=== PATIENT | male | born 1980 | race Caucasian/White ===

== ENCOUNTER 2019-10-23 16:50 | Emergency (ER) | payer OTHER ==
[2019-10-23] MEDS ORDERED: BABY ASPIRIN 81 MG CHEW PO ONE (17:00)
[2019-10-23] MEDS ORDERED: Sodium Chloride 0.9% 1000 ML 1,000 ML IV SCH (17:00)
[2019-10-23] MEDS ORDERED: Nitrostat 0.4 MG (ED) SL ONE ×2 (17:00→17:05)
[2019-10-23] MEDS ORDERED: DUONEB 0.5-3 MG/3 ml Neb IH ONE ×2 (17:02→17:12)
[2019-10-23] MEDS ORDERED: BABY ASPIRIN 81 MG CHEW ONE (17:05)
[2019-10-23] MEDS ORDERED: Sodium Chloride 0.9% 1000 ML 1,000 ML ONE (17:06)
--- NOTE | 2019-10-23 17:07 | ERPHSYRPT ---
- History of Present Illness Time Seen by Provider: 10/23/19 17:03 Historian: patient, family Exam Limitations: no limitations Patient Subjective Stated Complaint: Pt states "For the past couple of hours my chest has been hurting and I am coughing so hard that my balls hurt. I am coughing up green stuff and my chest is hurting more and more." Triage Nursing Assessment: Pt presented alert and oriented X 3, skin pwd PT ambulates with an upright steady gait, able to speak in clear full sentencse. Pt coughing intermittantly, nasal congestion noted. Physician History: Patient states "For the past couple of hours my chest has been hurting and I am coughing so hard that my balls hurt. I am coughing up green stuff and my chest is hurting more and more." his son is also sick with same symptoms. No fever, no chills, Timing/Duration: today Quality: tightness Location: central Chest Pain Radiation: no radiation Modifying Factors: Improves With: nothing Associated Symptoms: shortness of breath, cough Prior Chest Pain/Cardiac Workup: no prior chest pain Aspirin Treatment Today: 81 mg x 1 Allergies/Adverse Reactions: No Known Drug Allergies Allergy (Unverified 10/23/19 16:58) Hx Tetanus, Diphtheria Vaccination/Date Given: No Hx Influenza Vaccination/Date Given: No Hx Pneumococcal Vaccination/Date Given: No Immunizations Up to Date: Yes - Review of Systems Constitutional: No Fever, No Chills Eyes: No Symptoms Ears, Nose, & Throat: No Symptoms Respiratory: Cough, Wheezing, No Dyspnea Cardiac: Chest Pain, No Edema, No Syncope Abdominal/Gastrointestinal: No Abdominal Pain, No Nausea, No Vomiting, No Diarrhea Genitourinary Symptoms: No Dysuria Musculoskeletal: No Back Pain, No Neck Pain Skin: No Rash Neurological: No Dizziness, No Focal Weakness, No Sensory Changes Psychological: No Symptoms Endocrine: No Symptoms All Other Systems: Reviewed and Negative - Past Medical History Pertinent Past Medical History: No - Past Surgical History Past Surgical History: Yes Other Surgical History: appi - Social History Smoking Status: Current every day smoker How long have you smoked: years Exposure to second hand smoke: Yes Drug Use: marijuana Patient Lives Alone: No - Nursing Vital Signs Nursing Vital Signs: Initial Vital Signs Temperature 98.6 F 10/23/19 16:51 Pulse Rate 96 H 10/23/19 16:51 Respiratory Rate 24 10/23/19 16:51 Blood Pressure 180/106 10/23/19 16:51 O2 Sat by Pulse Oximetry 97 10/23/19 16:51 Pain Scale Pain Intensity 4 - Physical Exam General Appearance: no apparent distress, alert Eye Exam: PERRL/EOMI, eyes nml inspection Ears, Nose, Throat Exam: normal ENT inspection, moist mucous membranes Neck Exam: normal inspection, non-tender, supple, full range of motion Respiratory Exam: rhonchi, wheezing, No respiratory distress Cardiovascular Exam: regular rate/rhythm, normal heart sounds Gastrointestinal/Abdomen Exam: soft, No tenderness, No mass Back Exam: normal inspection, No CVA tenderness, No vertebral tenderness Extremity Exam: normal inspection, normal range of motion Neurologic Exam: alert, oriented x 3, cooperative, normal mood/affect, sensation nml, No motor deficits Skin Exam: normal color, warm, dry SpO2: 97 - Course Nursing assessment & vital signs reviewed: Yes EKG Interpreted by Me: Sinus Rhythm, NORMAL ST-T - Radiology Exams Chest X-ray Interpretation: Reviewed by me, Negative Ordered Tests: Active Orders 24 hr Category Date Time Status Can Stacker STAT Care 10/23/19 17:01 Active EKG-ER Only STAT Care 10/23/19 17:00 Active CHEST 2 VIEWS (PA AND LAT) Stat Exams 10/23/19 17:00 Taken CBC W DIFF Stat Lab 10/23/19 17:14 Completed CMP Stat Lab 10/23/19 17:14 Completed TROPONIN Q3H Lab 10/23/19 17:14 Completed TROPONIN Q3H Lab 10/23/19 20:00 Ordered TROPONIN Q3H Lab 10/23/19 23:00 Ordered Peak Expiratory Flow Rate ONCE RT 10/23/19 17:29 Completed Respiratory Therapy Assessment DAILY RT 10/23/19 17:28 Completed Medication Summary Discontinued Medications Generic Name Dose Route Start Last Admin Trade Name Freq PRN Reason Stop Dose Admin Albuterol/Ipratropium 3 ml 10/23/19 17:02 10/23/19 17:28 Duoneb 0.5-3 Mg/3 Ml Neb IH 10/23/19 17:03 3 ml STAT ONE Administration Albuterol/Ipratropium Confirm 10/23/19 17:12 Duoneb 0.5-3 Mg/3 Ml Neb Administered 10/23/19 17:13 Dose 3 ml IH .STK-MED ONE Aspirin 81 mg 10/23/19 17:00 10/23/19 17:06 Baby Aspirin 81 Mg Chew PO 10/23/19 17:01 81 mg STAT ONE Administration Aspirin Confirm 10/23/19 17:05 Baby Aspirin 81 Mg Chew Administered 10/23/19 17:06 Dose 324 mg .ROUTE .STK-MED ONE Ceftriaxone Sodium 1,000 mg 10/23/19 17:46 10/23/19 17:59 Rocephin 1000 Mg Inj IM 10/23/19 17:47 1,000 mg STAT ONE Administration Ceftriaxone Sodium Confirm 10/23/19 17:49 Rocephin 1000 Mg Inj Administered 10/23/19 17:50 Dose 1,000 mg .ROUTE .STK-MED ONE Sodium Chloride 1,000 mls @ 50 mls/hr 10/23/19 17:00 10/23/19 17:07 Sodium Chloride 0.9% 1000 Ml IV 11/22/19 16:59 50 mls/hr .Q20H SHARON Administration Sodium Chloride Confirm 10/23/19 17:06 Sodium Chloride 0.9% 1000 Ml Administered 10/23/19 17:07 Dose 1,000 mls @ ud .ROUTE .STK-MED ONE Lidocaine HCl Confirm 10/23/19 17:50 Xylocaine 1% Hcl 20 Ml Mdv Administered 10/23/19 17:51 Dose 3 ml .ROUTE .STK-MED ONE Nitroglycerin 0.4 mg 10/23/19 17:00 10/23/19 17:06 Nitrostat 0.4 Mg (Ed) SL 10/23/19 17:01 0.4 mg STAT ONE Administration Nitroglycerin Confirm 10/23/19 17:05 Nitrostat 0.4 Mg (Ed) Administered 10/23/19 17:06 Dose 0.4 mg SL .STK-MED ONE Potassium Bicarbonate 25 meq 10/23/19 17:38 10/23/19 17:59 K-Lyte 25 Meq PO 10/23/19 17:39 25 meq STAT ONE Administration Potassium Bicarbonate Confirm 10/23/19 17:49 K-Lyte 25 Meq Administered 10/23/19 17:50 Dose 25 meq .ROUTE .STK-[facility] ONE Lab/Rad Data: Laboratory Result Diagrams 10/23/19 17:14 10/23/19 17:14 Laboratory Results 10/23/19 10/23/19 10/23/19 Range/Units 17:14 17:14 17:14 WBC 9.0 (4.0-10.5) K/mm3 RBC 4.60 (4.1-5.6) M/mm3 Hgb 14.4 (12.5-18.0) gm/dl Hct 42.4 (42-50) % MCV 92.2 (78-100) fl MCH 31.3 (26-32) pg MCHC 34.0 (32-36) g/dl RDW 14.2 H (11.5-14.0) % Plt Count 284 (150-450) K/mm3 MPV 9.9 (7.5-11.0) fl Gran % 60.1 (36.0-66.0) % Eos # (Auto) 0.08 (0-0.5) Absolute Lymphs (auto) 2.05 (1.0-4.6) Absolute Monos (auto) 1.42 H (0.0-1.3) Lymphocytes % 22.8 L (24.0-44.0) % Monocytes % 15.8 H (0.0-12.0) % Eosinophils % 0.9 (0.00-5.0) % Basophils % 0.4 (0.0-0.4) % Absolute Granulocytes 5.42 (1.4-6.9) Basophils # 0.04 (0-0.4) Sodium 139 (137-145) mmol/L Potassium 3.3 L (3.5-5.1) mmol/L Chloride 102 (98-107) mmol/L Carbon Dioxide 25 (22-30) mmol/L Anion Gap 14.7 (5-15) MEQ/L BUN 12 (9-20) mg/dL Creatinine 1.05 (0.66-1.25) mg/dL Estimated GFR > 60.0 ML/MIN Glucose 106 (74-106) mg/dL Calcium 9.1 (8.4-10.2) mg/dL Total Bilirubin 0.40 (0.2-1.3) mg/dL AST 28 (17-59) U/L ALT 39 (0-50) U/L Alkaline Phosphatase 89 (38-126) U/L Troponin I (0.000-0.034) ng/mL Serum Total Protein 7.9 (6.3-8.2) g/dL Albumin 4.3 (3.5-5.0) g/dL Influenza Type A Ag NEGATIVE (NEGATIVE) Influenza Type B Ag POSITIVE (NEGATIVE) RSV (PCR) NEGATIVE (Negative) 10/23/19 Range/Units 17:14 WBC (4.0-10.5) K/mm3 RBC (4.1-5.6) M/mm3 Hgb (12.5-18.0) gm/dl Hct (42-50) % MCV (78-100) fl MCH (26-32) pg MCHC (32-36) g/dl RDW (11.5-14.0) % Plt Count (150-450) K/mm3 MPV (7.5-11.0) fl Gran % (36.0-66.0) % Eos # (Auto) (0-0.5) Absolute Lymphs (auto) (1.0-4.6) Absolute Monos (auto) (0.0-1.3) Lymphocytes % (24.0-44.0) % Monocytes % (0.0-12.0) % Eosinophils % (0.00-5.0) % Basophils % (0.0-0.4) % Absolute Granulocytes (1.4-6.9) Basophils # (0-0.4) Sodium (137-145) mmol/L Potassium (3.5-5.1) mmol/L Chloride (98-107) mmol/L Carbon Dioxide (22-30) mmol/L Anion Gap (5-15) MEQ/L BUN (9-20) mg/dL Creatinine (0.66-1.25) mg/dL Estimated GFR ML/MIN Glucose (74-106) mg/dL Calcium (8.4-10.2) mg/dL Total Bilirubin (0.2-1.3) mg/dL AST (17-59) U/L ALT (0-50) U/L Alkaline Phosphatase (38-126) U/L Troponin I < 0.012 (0.000-0.034) ng/mL Serum Total Protein (6.3-8.2) g/dL Albumin (3.5-5.0) g/dL Influenza Type A Ag (NEGATIVE) Influenza Type B Ag (NEGATIVE) RSV (PCR) (Negative) - Progress Progress: improved Air Movement: good Blood Culture(s) Obtained: No Antibiotics given: Yes Counseled pt/family regarding: lab results, diagnosis, need for follow-up, rad results - Departure Departure Disposition: Home Clinical Impression: Influenza B Right lower lobe pneumonitis Qualifiers: Pneumonia type: due to unspecified organism Qualified Code(s): J18.9 - Pneumonia, unspecified organism Condition: Stable Critical Care Time: No Referrals: ARNULFO BAUTISTA MD [ACTIVE STAFF] - Instructions: Atypical Chest Pain, Pneumonia, Adult (DC) Additional Instructions: Discharge/Care Plan KAYLYN DURAN was seen on 10/23/19 in the Emergency Room. The patient was counseled regarding Diagnosis,Lab results, Imaging studies, need for follow up and when to return to the Emergency Room. Prescriptions given: Discharge Note I have spoken with the patient and/or caregivers. I have explained the patient' s condition, diagnosis and treatment plan based on the information available to me at this time. I have answered the patient's and/or caregiver's questions and addressed any concerns. The patient and/or caregivers have as good understanding of the patient's diagnosis, condition and treatment plan as can be expected at this point. The vital signs have been stable. The patient's condition is stable and appropriate for discharge from the emergency department. The patient will pursue further outpatient evaluation with the primary care physician or other designated or consulting physician as outlined in the discharge instructions. The patient and/or caregivers are agreeable to this plan of care and follow-up instructions have been explained in detail. The patient and/or caregivers have received these instruction. The patient/and or caregivers are aware that any significant change in condition or worsening of symptoms should prompt an immediate return to this or the closest emergency department or call 911. KAYLYN DURAN was seen on 10/23/19 n the Emergency Room. At that time you were treated for an emergent condition, during your visit Laboratory, Radiology and/ or other procedures may have been ordered. It is very important that you follow- up with your Primary Care Physician NO FAMILY DOCTOR within the next 24-48 hours to review your Emergency Room visit and the final results of testing that was ordered. Some test results such as Urine Cultures, Blood Cultures, and other cultures if ordered will not be finalized for 24-48 hours. If you do not have a Primary Care Provider please call the medical records department at [phone] ext [phone] to obtain a copy of your results or you may sign into our patient portal to obtain these results by visiting us @ [email or web address] and completing the following steps: 1. Click on the Patient Portal link 2. Click the Patient Self Enrollment Link to complete the enrollment form and entering your 3. Once the enrollment form is completed you will receive an email with a temporary ID and password at the email address you provided. 4. Next choose a user name and password. Your user name must be at least 4 characters long and your password must be at least 4 characters long. 5. Choose a security question from the list and provide your answer to the question. If you already have signed into the Health Portal you may access your Health Care Information 14/04 by the following steps: 1. Login to our website @ [email or web address] 2. Enter your original user name and password. FAQS The [facility] Health Portal is an online tool that contains your Lab Results, Radiology Reports, Visit History, Discharge Instructions and Health Summary Lab and Radiology Results will not be available for 72 hours on the portal. The Portal is a secure site, passwords are encryted and URLs are re-written so they cannot be copied and pasted. You and authorized family members are the only ones who can access your Portal. Also there is a timeout feature that protects your information if you leave the Portal page open. If you have technical difficulty please use the Contact Us link on the page this will allow you to submit any questions you have regarding the Portal or you may contact the Medical Record Department at [phone]. Prescriptions: Amoxicillin 500 mg Cap [Amoxil 500 mg] 500 mg PO TID #30 capsule Oseltamivir 75 mg [Tamiflu 75MG Capsule] 75 mg PO BID #10 cap Benzonatate [Tessalon Perle] 100 mg PO QID #30 capsule
[2019-10-23 17:15] LABS: Absolute Neutrophil Ct (ANC) 5.42 (1.4-6.9); BASOPHIL % 0.4 % (0.0-0.4); Basophil (Absolute #) 0.04 (0-0.4); Eosinophil % 0.9 % (0.00-5.0); Eosinophil (Absolute #) 0.08 (0-0.5); Hematocrit 42.4 % (42-50); Hemoglobin 14.4 gm/dl (12.5-18.0); Lymphocyte (Absolute #) 2.05 (1.0-4.6); Lymphocytes % 22.8 % (24.0-44.0); Mean Cell Volume 92.2 fl (78-100); Mean Corpuscular Hemoglobin 31.3 pg (26-32); Mean Platelet Volume 9.9 fl (7.5-11.0); Monocyte (Absolute #) 1.42 (0.0-1.3); Monocytes % 15.8 % (0.0-12.0); Neutrophil % 60.1 % (36.0-66.0); Platelet Count 284 K/mm3 (150-450); Red Cell Distribution Width 14.2 % (11.5-14.0)
[2019-10-23 17:24] LABS: ALBUMIN 4.3 g/dL (3.5-5.0); ALKALINE PHOSPHATASE 89 U/L (38-126); ANION GAP 14.7 MEQ/L (5-15); BLOOD UREA NITROGEN 12 mg/dL (9-20); CHLORIDE 102 mmol/L (98-107); Calcium 9.1 mg/dL (8.4-10.2); Carbon Dioxide 25 mmol/L (22-30); Creatinine 1 1.05 mg/dL (0.66-1.25); Glucose 106 mg/dL (74-106); Potassium 3.3 mmol/L (3.5-5.1); SGOT/AST 28 U/L (17-59); SGPT/ALT 39 U/L (0-50); SODIUM 139 mmol/L (137-145); Total Protein 7.9 g/dL (6.3-8.2)
[2019-10-23] MEDS ORDERED: K-LYTE 25 MEQ PO ONE (17:38)
[2019-10-23] MEDS ORDERED: Rocephin 1000 MG INJ IM ONE (17:46)
[2019-10-23] MEDS ORDERED: K-LYTE 25 MEQ ONE (17:49)
[2019-10-23] MEDS ORDERED: Rocephin 1000 MG INJ ONE (17:49)
[2019-10-23 17:50] VITALS: BP 129/80
[2019-10-23] MEDS ORDERED: XYLOCAINE 1% HCL 20 ML MDV ONE (17:50)
[2019-10-23 17:51] VITALS: PULSE 98
[2019-10-23 17:53] VITALS: O2SAT 97
[2019-10-23 18:20] LABS: INFLUENZA A NEGATIVE (NEGATIVE)
[2019-10-23 18:21] LABS: INFLUENZA B POSITIVE (NEGATIVE); RESPIRATORY SYNCTIAL VIRUS NEGATIVE (Negative)
--- NOTE | 2019-10-23 20:10 | XRAY ---
Indication: Chest pain, cough, short of breath, and wheezing. Comparison: None PA/lateral chest demonstrates subtle right base infiltrate versus atelectasis. Remaining heart and left lung normal. Bony thorax intact.
== END 2019-10-23 18:07 | disposition home or self-care (01) ==
LOC: ED 16:50
DX: J11.1 Influenza due to unidentified influenza virus with other respiratory manifestations (principal); J18.1 Lobar pneumonia, unspecified organism
CPT/HCPCS: 36415; 71046; 80053; 84484; 85025; 87631; 93005; 93041; 94150; 94640; 96372; 99284; J0696; A9270-GY

== ENCOUNTER 2020-05-28 10:07 | Emergency (ER) | payer OTHER ==
[2020-05-28] MEDS ORDERED: Sodium Chloride 0.9% 1000 ML 1,000 ML IV STA ×2 (10:51→10:52)
--- NOTE | 2020-05-28 10:51 | ERPHSYRPT ---
- History of Present Illness Time Seen by Provider: 05/28/20 10:47 Source: patient Exam Limitations: no limitations Patient Subjective Stated Complaint: headache, body aches, chills, lost taste/smell, exposure to 2 possible covid people Triage Nursing Assessment: pt to ED c/o headache, cough, body aches, fevers, loss taste/smell and possible covid exposure last week. pt states he started feeling bad Friday and has been staying home since Friday. 2 coworks have also been tested but do not have results back yet. no SOB and afebrile on arrival. rates 07/01 NAV[facility]TE Physician History: pt has Covid exp at work and now with body aches , but also sinus hx and drainage; ginger fluids today but had emesis last pm and loose stool - has lost taste; not sort of breath and has normal pulse ox and chest clear- no menigismus or shaista h; abd soft nontender without mass or peritoneal signs; Timing/Duration: yesterday Cough Quality/Degree: dry cough Possible Cause: no prior episodes Modifying Factors: Improves With: nothing Associated Symptoms: nasal congestion, nasal drainage, sinus infection Allergies/Adverse Reactions: No Known Drug Allergies Allergy (Verified 05/28/20 12:12) Hx Tetanus, Diphtheria Vaccination/Date Given: No Hx Influenza Vaccination/Date Given: No Hx Pneumococcal Vaccination/Date Given: No Immunizations Up to Date: No Travel Risk - International Travel Have you traveled outside of the country in past 3 weeks: No - Coronavirus Screening Are you exhibiting any of the following symptoms?: Yes Symptoms: Fever, Loss of Taste or Smell, Headaches/Body Aches/Fatigue - Review of Systems Constitutional: Chills, Malaise, No Fever Eyes: No Symptoms Ears, Nose, & Throat: Nose Congestion, Sinus Drainage Respiratory: Cough, No Dyspnea Cardiac: No Chest Pain, No Edema, No Syncope Abdominal/Gastrointestinal: Nausea, Vomiting, Diarrhea, No Abdominal Pain Genitourinary Symptoms: No Dysuria Musculoskeletal: No Back Pain, No Neck Pain Skin: No Rash Neurological: No Dizziness, No Focal Weakness, No Sensory Changes Psychological: No Symptoms Endocrine: No Symptoms All Other Systems: Reviewed and Negative - Past Medical History Pertinent Past Medical History: No - Past Surgical History Past Surgical History: Yes Other Surgical History: appi - Social History Smoking Status: Current every day smoker How long have you smoked: years Exposure to second hand smoke: Yes Drug Use: none Patient Lives Alone: No - Nursing Vital Signs Nursing Vital Signs: Initial Vital Signs Temperature 97.7 F 05/28/20 10:22 Pulse Rate 68 05/28/20 10:22 Respiratory Rate 18 05/28/20 10:22 Blood Pressure 165/108 05/28/20 10:22 O2 Sat by Pulse Oximetry 98 05/28/20 10:22 Pain Scale Pain Intensity 0 - Physical Exam General Appearance: no apparent distress, alert Eye Exam: PERRL/EOMI, eyes nml inspection Ears, Nose, Throat Exam: TMs normal, pharynx normal, moist mucous membranes, other (tender bilat sinuses) Neck Exam: normal inspection, non-tender, supple, full range of motion Respiratory Exam: normal breath sounds, lungs clear, No respiratory distress Cardiovascular Exam: regular rate/rhythm, normal heart sounds Gastrointestinal/Abdomen Exam: soft, No tenderness Back Exam: normal inspection, No CVA tenderness, No vertebral tenderness Extremity Exam: normal inspection, normal range of motion Neurologic Exam: alert, oriented x 3, cooperative, normal mood/affect, sensation nml, No motor deficits Skin Exam: normal color, warm, dry, No rash Lymphatic Exam: No adenopathy SpO2: 98 - Course Nursing assessment & vital signs reviewed: Yes Ordered Tests: Active Orders 24 hr Category Date Time Status IV Insertion STAT Care 05/28/20 10:51 Active Medication Summary Discontinued Medications Generic Name Dose Route Start Last Admin Trade Name Freq PRN Reason Stop Dose Admin Diphenhydramine HCl 25 mg 05/28/20 11:35 05/28/20 11:45 Benadryl 50 Mg/Ml IV 05/28/20 11:36 25 mg STAT ONE Administration Diphenhydramine HCl Confirm 05/28/20 11:41 Benadryl 50 Mg/Ml Administered 05/28/20 11:42 Dose 50 mg .ROUTE .STK-MED ONE Sodium Chloride 1,000 mls @ 999 mls/hr 05/28/20 10:51 05/28/20 12:06 Sodium Chloride 0.9% 1000 Ml IV 05/28/20 11:51 Infused .Q1H1M STA Infusion Sodium Chloride 1,000 mls @ 999 mls/hr 05/28/20 10:52 05/28/20 12:46 Sodium Chloride 0.9% 1000 Ml IV 05/28/20 11:52 Infused .Q1H1M STA Infusion Ceftriaxone Sodium/Dextrose 1 g in 50 mls @ 100 mls/hr 05/28/20 10:53 05/28/20 11:35 Rocephin 1 Gm-D5w 50 Ml Bag IV 05/28/20 11:22 Infused STAT STA Infusion Sodium Chloride Confirm 05/28/20 10:56 Sodium Chloride 0.9% 1000 Ml Administered 05/28/20 10:57 Dose 1,000 mls @ ud .ROUTE .STK-MED ONE Ceftriaxone Sodium/Dextrose Confirm 05/28/20 10:56 Rocephin 1 Gm-D5w 50 Ml Bag Administered 05/28/20 10:57 Dose 1 g in 50 mls @ ud IV .STK-MED ONE Sodium Chloride Confirm 05/28/20 11:41 Sodium Chloride 0.9% 1000 Ml Administered 05/28/20 11:42 Dose 1,000 mls @ ud .ROUTE .STK-MED ONE Ketorolac Tromethamine 30 mg 05/28/20 11:34 05/28/20 11:45 Toradol 30 Mg Injection IV 05/28/20 11:35 30 mg STAT ONE Administration Ketorolac Tromethamine Confirm 05/28/20 11:41 Toradol 30 Mg Injection Administered 05/28/20 11:42 Dose 30 mg .ROUTE .STK-MED ONE Metoclopramide HCl 10 mg 05/28/20 11:34 05/28/20 11:45 Reglan 10 Mg/2 Ml IV 05/28/20 11:35 10 mg STAT ONE Administration Metoclopramide HCl Confirm 05/28/20 11:41 Reglan 10 Mg/2 Ml Administered 05/28/20 11:42 Dose 10 mg .ROUTE .STK-MED ONE - Progress Progress: improved, re-examined Air Movement: good Progress Note: 05/28/20 11:55 headache was a gradual onset, no hx trauma, no neuro findings, no hx blood dyscrasia or use of blood thinners. 05/28/20 12:55 pt states his headache was not toobad but like similar migraine , and has re solved completely after treatment and he wishes to decline furhter w/u at this time in ER after discussion of risk/benefit. Blood Culture(s) Obtained: No Antibiotics given: Yes Counseled pt/family regarding: lab results, diagnosis, need for follow-up - Departure Clinical Impression: Person under investigation for COVID-19, Sinusitis Condition: Good Critical Care Time: No Referrals: DOCTOR,NO FAMILY [Primary Care Provider] - Instructions: Sinusitis, Adult (DC), Coronavirus Disease 2019 (COVID-19) (DC) Additional Instructions: the covid will take 1-2 days to come back adn you need to quaratine until we know the result. we sent a Zpak for your sinus infection to [facility] for [employer] [facility]. return meantime if any shortness of breath or continued vomiting or other concerns. followup with your dr to recheck your blood pressure which was a little high.
[2020-05-28] MEDS ORDERED: ROCEPHIN 1 Gm-D5w 50 ml Bag** 1 G/50 ML IVPB IV STA (10:53)
[2020-05-28] MEDS ORDERED: Sodium Chloride 0.9% 1000 ML 1,000 ML ONE ×2 (10:56→11:41)
[2020-05-28] MEDS ORDERED: ROCEPHIN 1 Gm-D5w 50 ml Bag** 1 G/50 ML IVPB IV ONE (10:56)
[2020-05-28] MEDS ORDERED: Reglan 10 MG/2 ML IV ONE (11:34)
[2020-05-28] MEDS ORDERED: TORAdol 30 mg Injection IV ONE (11:34)
[2020-05-28] MEDS ORDERED: BENADRYL 50 MG/ML IV ONE (11:35)
[2020-05-28] MEDS ORDERED: BENADRYL 50 MG/ML ONE (11:41)
[2020-05-28] MEDS ORDERED: Reglan 10 MG/2 ML ONE (11:41)
[2020-05-28] MEDS ORDERED: TORAdol 30 mg Injection ONE (11:41)
[2020-05-28 12:11] VITALS: PULSE 60
[2020-05-28 12:53] VITALS: BP 129/90
[2020-05-28 12:56] VITALS: O2SAT 98
== END 2020-05-28 13:12 | disposition home or self-care (01) ==
LOC: ED 10:07
DX: R51 Headache (principal); R68.83 Chills (without fever); R43.8 Other disturbances of smell and taste; Z20.828 Contact with and (suspected) exposure to other viral communicable diseases; J32.9 Chronic sinusitis, unspecified
CPT/HCPCS: 36000; 96360; 96365; 96374; 96375; 99284; U0003; J0696; J1200; J1885

== ENCOUNTER 2021-01-23 10:28 | Emergency (ER) | payer OTHER ==
[2021-01-23] MEDS ORDERED: XYLOCAINE 1% HCL 20 ML MDV ONE (10:31)
[2021-01-23] MEDS ORDERED: Zofran 4 MG/2 ML VIAL ONE (10:33)
[2021-01-23] MEDS ORDERED: Sodium Chloride 0.9% 1000 ML 1,000 ML ONE (10:33)
[2021-01-23] MEDS ORDERED: MORPHINE SULFATE 4 MG INJ ONE ×2 (10:33→11:22)
[2021-01-23] MEDS ORDERED: KEFZOL 1 GM/50 ML PREMIX** 1 GM/50 ML IVPB IV ONE (10:36)
[2021-01-23] MEDS: Zofran 4 MG/2 ML VIAL IV ONE (11:00)
--- NOTE | 2021-01-23 11:07 | ERPHSYRPT ---
- History of Present Illness Time Seen by Provider: 01/23/21 10:35 Source: patient Exam Limitations: no limitations Patient Subjective Stated Complaint: pt here chain saw laceration to left knee Triage Nursing Assessment: pt alert, resp labored at times,slom, moist and pink, pt has 7 1/2 cm ladceration to left knee, minimal amount of bleeding note.no other injury Physician History: This is a 41-year-old white male has a history of hypertension and presents emergently to the emergency department with a laceration to the left anterior knee that occurred just prior to arrival. Patient was cutting down limbs of trees using a chainsaw and lost control the chainsaw. The chainsaw then caused a laceration of his left anterior knee. Patient's tetanus status is not up-to-date. Patient has no known drug allergies. Timing/Duration: today Quality: painful Severity: moderate Location: extremities Possible Causes: other (Accidental chainsaw laceration) Associated Symptoms: denies symptoms Allergies/Adverse Reactions: No Known Drug Allergies Allergy (Verified 01/23/21 10:30) Home Medications: Losartan/Hydrochlorothiazide [Losartan-Hctz 50-12.5 mg Tab] 1 ea DAILY 01/23/21 [History] Sertraline HCl [Zoloft] 1 ea DAILY 01/23/21 [History] buPROPion HCL [Bupropion HCl] 1 ea DAILY 01/23/21 [History] Hx Tetanus, Diphtheria Vaccination/Date Given: No Hx Influenza Vaccination/Date Given: No Hx Pneumococcal Vaccination/Date Given: No Immunizations Up to Date: Yes Travel Risk - International Travel Have you traveled outside of the country in past 3 weeks: No - Coronavirus Screening Are you exhibiting any of the following symptoms?: No Close contact with a COVID-19 positive Pt in past 14-21 Days: No - Vaccine Status Have you recieved a Covid-19 vaccination: No - Review of Systems Constitutional: No Symptoms Eyes: No Symptoms Ears, Nose, & Throat: No Symptoms Respiratory: No Symptoms Cardiac: No Symptoms Abdominal/Gastrointestinal: No Symptoms Genitourinary Symptoms: No Symptoms Musculoskeletal: No Symptoms Skin: Other (Laceration of skin left anterior knee) Neurological: No Symptoms Psychological: No Symptoms Endocrine: No Symptoms Hematologic/Lymphatic: No Symptoms Immunological/Allergic: No Symptoms All Other Systems: Reviewed and Negative - Past Medical History Pertinent Past Medical History: Yes Neurological History: No Pertinent History Cardiac History: Hypertension Respiratory History: No Pertinent History Endocrine Medical History: No Pertinent History Musculoskeletal History: No Pertinent History - Past Surgical History Past Surgical History: Yes Gastrointestinal: Appendectomy Other Surgical History: appi - Social History Smoking Status: Current every day smoker How long have you smoked: years Exposure to second hand smoke: Yes Drug Use: marijuana Patient Lives Alone: No - Nursing Vital Signs Nursing Vital Signs: Initial Vital Signs Temperature 98.2 F 01/23/21 10:34 Pulse Rate 129 H 01/23/21 10:34 Respiratory Rate 18 01/23/21 10:34 Blood Pressure 165/113 01/23/21 10:34 O2 Sat by Pulse Oximetry 97 01/23/21 10:34 Pain Scale Pain Intensity 7 - Physical Exam General Appearance: mild distress, alert, anxiety, obese Eye Exam: PERRL/EOMI, eyes nml inspection Ears, Nose, Throat Exam: normal ENT inspection, moist mucous membranes Neck Exam: normal inspection, non-tender, supple, full range of motion Respiratory Exam: normal breath sounds, lungs clear, airway intact, No chest tenderness, No respiratory distress Cardiovascular Exam: tachycardia Gastrointestinal/Abdomen Exam: No tenderness Rectal Exam: not done Back Exam: normal inspection, normal range of motion, No CVA tenderness, No vertebral tenderness Extremity Exam: normal range of motion, pelvis stable, lacerations (8 cm laceration skin of left anterior knee), tenderness Neurologic Exam: alert, oriented x 3, cooperative, matchbook assembler II-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 Wound examined in bloodless field to base) Irrigated: Yes Hibiclens Prep: Yes Anesthesia: 1% Lidocaine Volume Anesthetic (ccs): 15 Wound Repaired With: sutures, Macie Suture Size/Type: 3-0, prolene, vicryl Number of Sutures: 6 (3 Vicryl stitches, 3 skin Prolene stitches, 13 skin macie) Layer Closure?: Yes Deep Layer Suture Size/Type: 3:0 Number Deep Layer Sutures: 3 Sterile Dressing Applied?: Yes Splint Applied?: No Sling Applied?: No Progress: 01/23/21 11:10 Wound was cleaned and irrigated out well with saline and Hibiclens solution. There was mild debridement of skin edges performed. 3 deep stitches of 3-0 Vicryl used to approximate the fascia. 13 skin macie were placed followed by 3 superficial stitches of 3-0 Prolene. The wound was again cleaned and dried with Hibiclens solution. A thin layer of antibiotic ointment was applied. Pressure dressing was then applied. - Course Nursing assessment & vital signs reviewed: Yes Ordered Tests: Active Orders 24 hr Category Date Time Status IV Insertion STAT Care 01/23/21 11:19 Active Wound Care STAT Care 01/23/21 11:16 Active KNEE (1 OR 2 VIEW) Stat Exams 01/23/21 11:16 Completed Medication Summary Discontinued Medications Generic Name Dose Route Start Last Admin Trade Name Freq PRN Reason Stop Dose Admin Bacitracin Zinc 0.9 gm 01/23/21 11:18 01/23/21 11:25 Baciguent Packet TP 01/23/21 11:19 0.9 gm STAT ONE Administration Bacitracin Zinc Confirm 01/23/21 11:25 Baciguent Packet Administered 01/23/21 11:26 Dose 1 gm .ROUTE .STK-MED ONE Diphtheria/Tetanus/Acell Pertussis 0.5 ml 01/23/21 11:37 01/23/21 11:41 Adacel Vial IM 01/23/21 11:38 0.5 ml .ONCE ONE Administration Diphtheria/Tetanus/Acell Pertussis Confirm 01/23/21 11:40 Adacel Vial Administered 01/23/21 11:41 Dose 0.5 ml IM .STK-MED ONE Sodium Chloride Confirm 01/23/21 10:33 Sodium Chloride 0.9% 1000 Ml Administered 01/23/21 10:34 Dose 1,000 mls @ ud .ROUTE .STK-MED ONE Cefazolin Sodium/Dextrose Confirm 01/23/21 10:36 Kefzol 1 Gm/50 Ml Premix Administered 01/23/21 10:37 Dose 1 gm in 50 mls @ ud IV .STK-MED ONE Sodium Chloride 1,000 mls @ 999 mls/hr 01/23/21 11:20 01/23/21 12:07 Sodium Chloride 0.9% 1000 Ml IV 01/23/21 12:20 Infused .Q1H1M STA Infusion Cefazolin Sodium/Dextrose 1 gm in 50 mls @ 100 mls/hr 01/23/21 11:20 01/23/21 12:06 Kefzol 1 Gm/50 Ml Premix IV 01/23/21 11:49 Infused STAT STA Infusion Lidocaine HCl Confirm 01/23/21 10:31 Xylocaine 1% Hcl 20 Ml Mdv Administered 01/23/21 10:32 Dose 15 ml .ROUTE .STK-MED ONE Lidocaine HCl 20 ml 01/23/21 11:26 01/23/21 11:26 Xylocaine 1% Hcl 20 Ml Mdv IJ 01/23/21 11:27 20 ml STAT ONE Administration Morphine Sulfate Confirm 01/23/21 10:33 Morphine Sulfate 4 Mg Inj Administered 01/23/21 10:34 Dose 4 mg .ROUTE .STK-MED ONE Morphine Sulfate 4 mg 01/23/21 11:17 01/23/21 11:25 Morphine Sulfate 4 Mg Inj IV 01/23/21 11:18 4 mg STAT ONE Administration Morphine Sulfate 4 mg 01/23/21 11:18 01/23/21 11:23 Morphine Sulfate 4 Mg Inj IV 01/23/21 11:19 4 mg STAT ONE Administration Morphine Sulfate Confirm 01/23/21 11:22 Morphine Sulfate 4 Mg Inj Administered 01/23/21 11:23 Dose 4 mg .ROUTE .STK-MED ONE Ondansetron HCl Confirm 01/23/21 10:33 Zofran 4 Mg/2 Ml Vial Administered 01/23/21 10:34 Dose 4 mg .ROUTE .STK-MED ONE Ondansetron HCl 4 mg 01/23/21 11:18 01/23/21 11:00 Zofran 4 Mg/2 Ml Vial IV 01/23/21 11:19 4 mg STAT ONE Administration - Progress Progress: improved, pain not gone completely, re-examined Progress Note: 01/23/21 12:24 X-ray of left knee reveals no bony abnormalities. There are no foreign bodies visible. Counseled pt/family regarding: diagnosis, need for follow-up, rad results - Departure Departure Disposition: Home Clinical Impression: Laceration of left knee Condition: Stable Critical Care Time: No Referrals: MAURICIO COATES [Primary Care Provider] - Additional Instructions: Keep current dressing in place for 24 hours. After 24 hours remove the dressing and wash the site daily with soap and water. Blot dry use a hairdryer. After drying apply thin layer of antibiotic ointment and rebandage the wound. Follow- up with your primary care physician for wound evaluation. Staple removal in 10 to 12 days. Apply ice pack to the area 3 times a day for the next 48 hours. Ibuprofen 600 mg orally with food 3 times a day for the next 4 days. Pain control by your primary care physician. Take your antibiotics as prescribed Prescriptions: Oxycodone HCl/Acetaminophen [Percocet 5-325 mg Tablet] 1 each PO Q8H PRN PRN #7 tablet MDD 3 PRN Reason: Pain Cephalexin Mh 500 mg [Keflex 500 mg] 500 mg PO TID #15 capsule
[2021-01-23] MEDS: MORPHINE SULFATE 4 MG INJ IV ONE ×2 (11:23→11:25)
[2021-01-23] MEDS ORDERED: BACIGUENT PACKET ONE (11:25)
[2021-01-23] MEDS: BACIGUENT PACKET TP ONE (11:25)
[2021-01-23] MEDS: Sodium Chloride 0.9% 1000 ML 1,000 ML IV STA (11:26)
[2021-01-23] MEDS: XYLOCAINE 1% HCL 20 ML MDV IJ ONE (11:26)
[2021-01-23] MEDS: KEFZOL 1 GM/50 ML PREMIX** 1 GM/50 ML IVPB IV STA (11:28)
[2021-01-23] MEDS ORDERED: Adacel Vial IM ONE (11:40)
[2021-01-23] MEDS: Adacel Vial IM ONE (11:41)
--- NOTE | 2021-01-23 12:13 | XRAY ---
Indication: Chainsaw injury. Comparison: None AP/lateral left knee demonstrates anterior soft tissue swelling with cutaneous macie. No other bony, articular or soft tissue abnormalities.
[2021-01-23 12:26] VITALS: BP 154/99; PULSE 96; O2SAT 95
== END 2021-01-23 12:36 | disposition home or self-care (01) ==
LOC: ED 10:28
DX: S81.012A Laceration without foreign body, left knee, initial encounter (principal); W29.3XXA Contact with powered garden and outdoor hand tools and machinery, initial encounter; Y93.89 Activity, other specified; Y92.89 Other specified places as the place of occurrence of the external cause; I10 Essential (primary) hypertension; Z79.899 Other long term (current) drug therapy
CPT/HCPCS: 12004; 36000; 73560; 90471; 90715; 96360; 96365; 96372; 96374; 96375; 96376; 99285; J0690; J2270; J2405; A9270-GY

== ENCOUNTER 2022-01-11 11:00 | Emergency (ER) | payer OTHER ==
[~2022-01-11 11:00] MED LIST: BENADRYL 50 MG/ML ONE; Pepcid 20 MG VIAL IV ONE; Racepinephrine INH Solution 2.25% IH ONE; solu-MEDROL ONE
[2022-01-11] MEDS ORDERED: EPINEPHRINE ABBOJECT 1 MG IJ ONE (11:03)
[2022-01-11] MEDS ORDERED: BENADRYL 50 MG/ML IV ONE (11:04)
[2022-01-11] MEDS ORDERED: Pepcid 20 MG VIAL IV ONE (11:04)
[2022-01-11] MEDS ORDERED: solu-MEDROL 125 MG, Sterile H2O 10 ml 2 ML IV ONE ×2 (11:05)
[2022-01-11] MEDS ORDERED: Racepinephrine INH Solution 2.25% IH ONE (11:05)
[2022-01-11] MEDS ORDERED: Epinephrine Preservative Free 1 MG/ML IJ ONE (11:30)
[2022-01-11 12:03] VITALS: BP 149/88; PULSE 71; O2SAT 100
--- NOTE | 2022-01-11 12:09 | ERPHSYRPT ---
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 Pt has known bee venom allergy but did not have an Epi pen available. Timing/Duration: today (Before arrival) Associated Symptoms: shortness of breath Allergies/Adverse Reactions: No Known Drug Allergies Allergy (Verified 01/11/22 11:08) Home Medications: Losartan/Hydrochlorothiazide [Losartan-Hctz 50-12.5 mg Tab] 1 ea DAILY 01/23/21 [History] Sertraline HCl [Zoloft] 1 ea DAILY 01/23/21 [History] buPROPion HCL [Bupropion HCl] 1 ea DAILY 01/23/21 [History] Hx Tetanus, Diphtheria Vaccination/Date Given: No Hx Influenza Vaccination/Date Given: No Hx Pneumococcal Vaccination/Date Given: No Immunizations Up to Date: Yes Travel Risk - International Travel Have you traveled outside of the country in past 3 weeks: No - Coronavirus Screening Are you exhibiting any of the following symptoms?: No Close contact with a COVID-19 positive Pt in past 14-21 Days: No - Vaccine Status Have you recieved a Covid-19 vaccination: No - Review of Systems Constitutional: No Symptoms Eyes: No Symptoms Ears, Nose, & Throat: No Symptoms Respiratory: No Symptoms, Dyspnea Cardiac: No Symptoms Abdominal/Gastrointestinal: No Symptoms, Dysphagia Genitourinary Symptoms: No Symptoms Musculoskeletal: No Symptoms Skin: No Symptoms Neurological: No Symptoms Psychological: No Symptoms Endocrine: No Symptoms Hematologic/Lymphatic: No Symptoms Immunological/Allergic: No Symptoms - Past Medical History Pertinent Past Medical History: Yes Neurological History: No Pertinent History Cardiac History: Hypertension Respiratory History: No Pertinent History Endocrine Medical History: No Pertinent History Musculoskeletal History: No Pertinent History - Past Surgical History Past Surgical History: Yes Gastrointestinal: Appendectomy Other Surgical History: appi - Social History Smoking Status: Current every day smoker How long have you smoked: years Exposure to second hand smoke: Yes Drug Use: marijuana Patient Lives Alone: No Significant Family History: no pertinent family hx - Nursing Vital Signs Nursing Vital Signs: Initial Vital Signs Temperature 97.8 F 01/11/22 11:01 Pulse Rate 80 01/11/22 11:01 Respiratory Rate 22 01/11/22 11:01 Blood Pressure 182/106 01/11/22 11:01 O2 Sat by Pulse Oximetry 97 01/11/22 11:01 Pain Scale Pain Intensity 2 Hypertensive - Physical Exam General Appearance: moderate distress, anxiety Eye Exam: PERRL/EOMI, eyes nml inspection Ears, Nose, Throat Exam: normal ENT inspection, TMs normal, pharynx normal, moist mucous membranes Neck Exam: normal inspection, non-tender, supple, full range of motion, No meningismus, No mass, No Brudzinski, No Kernig's Respiratory Exam: wheezing (Occ wheeze B) Cardiovascular Exam: regular rate/rhythm, normal heart sounds, normal peripheral pulses, No murmur Gastrointestinal/Abdomen Exam: soft, normal bowel sounds, No tenderness Back Exam: normal inspection, normal range of motion, No CVA tenderness Extremity Exam: normal inspection, normal range of motion Neurologic Exam: alert, oriented x 3, cooperative, readiness paraprofessional II-XII nml as tested, normal mood/affect, nml cerebellar function, sensation nml, No motor deficits, No sensory deficit Skin Exam: rash (Mild diffuse erythematous eruption) Lymphatic Exam: No adenopathy SpO2 Interpretation: normal SpO2: 100 O2 Delivery: Room Air - Course Nursing assessment & vital signs reviewed: Yes Ordered Tests: Active Orders 24 hr Category Date Time Status Respiratory Therapy Assessment ONCE RT 01/11/22 11:12 Completed Medication Summary Discontinued Medications Generic Name Dose Route Start Last Admin Trade Name Freq PRN Reason Stop Dose Admin Methylprednisolone Sodium 0 mg 01/11/22 11:05 01/11/22 11:20 Succinate 125 mg/ Sterile IV 01/11/22 11:06 125 mg Water 2 ml STAT ONE Administration Diphenhydramine HCl 50 mg 01/11/22 11:04 01/11/22 11:20 Diphenhydramine Hcl 50 Mg/Ml Vial IV 01/11/22 11:05 50 mg STAT ONE Administration Epinephrine 0.5 ml 01/11/22 11:05 01/11/22 11:00 Racepinephrine Inh Cierra 0.5 Ml Neb IH 01/11/22 11:06 0.5 ml STAT ONE Administration Epinephrine HCl 0.3 mg 01/11/22 11:03 01/11/22 11:11 Epinephrine 0.1 Mg/Ml 10 Ml Abboject IJ 01/11/22 11:04 Not Given STAT ONE Epinephrine HCl 0.3 mg 01/11/22 11:30 01/11/22 11:19 Epinephrine 1 Mg/Ml Pf Ampule IJ 01/11/22 11:31 0.3 mg STAT ONE Administration Famotidine 40 mg 01/11/22 11:04 01/11/22 11:20 Famotidine 20 Mg/1 Vial IV 01/11/22 11:05 40 mg STAT ONE Administration - Progress Progress: improved Progress Note: 01/11/22 12:09 Upon arrival, pt rushed to Bed 2/0.3 Sq Epi given while IV access attempted w mild immediate improvement/40mg IV Pepcid, 125mg IV solumedrol,50mg IV Benadryl given when IV access obtained/Racemic epi neb x1 Pt improved quickly with treatment During susequent observation, pt nomalized wo evidence of dyspnea/d ysphagia/angioedema/progression of rash 01/11/22 14:07 Counseled pt/family regarding: diagnosis, need for follow-up - Departure Departure Disposition: Home Clinical Impression: Bee sting reaction Condition: Stable Critical Care Time: Yes Critical Care Time(excluding separately billable procedures): Critical 30-74 mins Referrals: MAURICIO COATES MD [Primary Care Provider] - Follow up/PCP as directed Instructions: Insect Bites and Stings (DC) Additional Instructions: Benadryl 25mg every six hours as needed Epinephrine injection for further bee stings Return to ER for trouble swallowing/breathing/swelling/rash Prescriptions: EPINEPHrine [Symjepi] 0.3 mg IJ DAILY PRN PRN #2 kit PRN Reason: Allergies
== END 2022-01-11 12:27 | disposition home or self-care (01) ==
LOC: ED 11:00
DX: T63.441A Toxic effect of venom of bees, accidental (unintentional), initial encounter (principal); R06.02 Shortness of breath; R21 Rash and other nonspecific skin eruption; I10 Essential (primary) hypertension; Z72.0 Tobacco use; Z79.899 Other long term (current) drug therapy
CPT/HCPCS: 36000; 94640; 96372; 96374; 96375; 99284; 99291; J0171; J1200; J2930

== ENCOUNTER 2023-02-20 09:10 | Emergency (ER) | payer OTHER ==
[2023-02-20] MEDS ORDERED: Nitrostat 0.4 MG Tablet SL ONE (09:36)
[2023-02-20] MEDS ORDERED: BABY ASPIRIN 81 MG CHEW PO ONE (09:36)
--- NOTE | 2023-02-20 09:44 | ERPHSYRPT ---
- History of Present Illness Historian: patient, other () Exam Limitations: no limitations Patient Subjective Stated Complaint: Pt states "I have been off all my anxiety meds for a month but I have had a minor stroke and chest pain before and this time I was working yesterday and my chest started to hurt and it has bothered me all night even waking me up." Triage Nursing Assessment: Pt presented alert and oriented X 3, skin pwd. pt ambulates with an upright steady gait, able to speak in clear full sentences. Pt anxious and speaking rapidly. pt in no apparent respiratory distress. Physician History: 43 yo WM w mid-sternal chest pain which he describes as "tightness" x 3 hours. Pain does not radiate and is currently 7/10 but has been up to a 10. He has similar pain yesterday. Pain accompanied by diaphoresis wo dyspnea/N/V. Pt states that he was admitted to [place] 1 month ago for possible LA/CVA. He did not get a cath/stent/CABG. Pt has a h/o HTN/hyperlipidemia/<1ppd tobacco use. He did not take any NTG today but took 81mg ASA. cough/fever denied. Timing/Duration: other (3 hours/Similar pain yesterday) Activities at Onset: sleep Quality: tightness Chest Pain Radiation: no radiation Severity of Pain-Max: severe Severity of Pain-Current: moderate Modifying Factors: Improves With: nothing Associated Symptoms: diaphoresis Nitro Today/Relief: no nitro taken today Aspirin Treatment Today: 81 mg x 1 Allergies/Adverse Reactions: bee venom protein (honey bee) Allergy (Severe, Verified 02/20/23 09:17) anyphylaxis mushroom Allergy (Severe, Verified 02/20/23 09:17) anaphylaxis Home Medications: Amlodipine Besylate 5 mg [Norvasc 5 mg] 10 mg PO DAILY 02/20/23 [History] Aspirin EC 81 mg [Ecotrin 81 mg] 81 mg PO DAILY 02/20/23 [History] Atorvastatin Calcium [Lipitor 40Mg] 40 mg PO HS 02/20/23 [History] Losartan/Hydrochlorothiazide [Losartan-Hctz 100-25 mg Tab] 1 each PO DAILY 02/20/23 [History] PANTOPRAZOLE 40 mg Tablet [Protonix 40MG Tablet] 40 mg PO QAM 02/20/23 [History] Hx Tetanus, Diphtheria Vaccination/Date Given: No Hx Influenza Vaccination/Date Given: No Hx Pneumococcal Vaccination/Date Given: No Immunizations Up to Date: No Travel Risk - International Travel Have you traveled outside of the country in past 3 weeks: No - Coronavirus Screening Are you exhibiting any of the following symptoms?: No Close contact with a COVID-19 positive Pt in past 14-21 Days: No - Vaccine Status Have you recieved a Covid-19 vaccination: No - Review of Systems Constitutional: No Symptoms Eyes: No Symptoms Ears, Nose, & Throat: No Symptoms Respiratory: No Symptoms Cardiac: Chest Pain Abdominal/Gastrointestinal: No Symptoms Genitourinary Symptoms: No Symptoms Musculoskeletal: No Symptoms Skin: No Symptoms Neurological: No Symptoms Psychological: No Symptoms Endocrine: No Symptoms Hematologic/Lymphatic: No Symptoms Immunological/Allergic: No Symptoms - Past Medical History Pertinent Past Medical History: Yes Neurological History: Stroke Cardiac History: Hypertension Respiratory History: No Pertinent History Endocrine Medical History: No Pertinent History Musculoskeletal History: No Pertinent History GI Medical History: GERD Psycho-Social History: Anxiety - Past Surgical History Past Surgical History: Yes Gastrointestinal: Appendectomy Other Surgical History: appi - Social History Smoking Status: Current every day smoker How long have you smoked: years Exposure to second hand smoke: Yes Drug Use: marijuana Patient Lives Alone: No Significant Family History: no pertinent family hx - Nursing Vital Signs Nursing Vital Signs: Initial Vital Signs Pulse Rate 70 02/20/23 09:06 Respiratory Rate 10 L 02/20/23 09:06 Blood Pressure 147/97 02/20/23 09:06 O2 Sat by Pulse Oximetry 99 02/20/23 09:06 Pain Scale Pain Intensity 2 Hypertensive - Physical Exam General Appearance: no apparent distress, alert Eye Exam: PERRL/EOMI, eyes nml inspection Ears, Nose, Throat Exam: normal ENT inspection, TMs normal, pharynx normal, moist mucous membranes Neck Exam: normal inspection, non-tender, supple, full range of motion, No meningismus, No mass, No Brudzinski, No Kernig's, No carotid bruit Respiratory Exam: airway intact, crackles/rales (L base), No chest tenderness, No respiratory distress Cardiovascular Exam: regular rate/rhythm, normal heart sounds, normal peripheral pulses, capillary refill <2 sec, No murmur Gastrointestinal/Abdomen Exam: soft, normal bowel sounds Extremity Exam: normal inspection, normal range of motion Neurologic Exam: alert, oriented x 3, cooperative, student life vice president II-XII nml as tested, normal mood/affect, nml cerebellar function, nml station & gait, sensation nml Skin Exam: normal color, warm, dry Lymphatic Exam: No adenopathy SpO2 Interpretation: normal SpO2: 100 O2 Delivery: Room Air - Course Nursing assessment & vital signs reviewed: Yes EKG Interpreted by Me: RATE (NSR/Rate 80/Normal QT-Qtc/Inferior Qwa ves/IVCD/Inverted Twave V3/Flat Twaves 3-AVF) - Radiology Exams Chest X-ray Interpretation: Reviewed by me, Discussed w/ radiologist (CXR-nothing acute) Ordered Tests: Active Orders 24 hr Category Date Time Status CHEST 1 VIEW (PORTABLE) Stat Exams 02/20/23 09:30 Completed CBC W DIFF Stat Lab 02/20/23 10:03 Completed CMP Stat Lab 02/20/23 10:03 Completed D-DIMER QUANTITATIVE Stat Lab 02/20/23 10:15 Completed NT PRO BNPII Stat Lab 02/20/23 10:03 Completed PROTIME WITH INR Stat Lab 02/20/23 10:03 Completed PTT Stat Lab 02/20/23 10:03 Completed TROPONIN Q4H Lab 02/20/23 10:03 Completed TROPONIN Q4H Lab 02/20/23 12:00 Completed Medication Summary Discontinued Medications Generic Name Dose Route Start Last Admin Trade Name Freq PRN Reason Stop Dose Admin Aspirin 324 mg 02/20/23 09:36 02/20/23 09:54 Aspirin 81 Mg Tab.Chew PO 02/20/23 09:37 324 mg STAT ONE Administration Aspirin Confirm 02/20/23 09:51 Aspirin 81 Mg Tab.Chew Administered 02/20/23 09:52 Dose 324 mg .ROUTE .STK-MED ONE Nitroglycerin 0.4 mg 02/20/23 09:36 02/20/23 09:53 Nitroglycerin 0.4 Mg Tablet Bottle SL 02/20/23 09:37 0.4 mg ONCE ONE Administration Nitroglycerin Confirm 02/20/23 09:52 Nitroglycerin 0.4 Mg (Ed) 0.4 Mg Tab.Subl Administered 02/20/23 09:53 Dose 0.4 mg SL .STK-MED ONE Nitroglycerin Confirm 02/20/23 09:53 Nitroglycerin 0.4 Mg (Ed) 0.4 Mg Tab.Subl Administered 02/20/23 09:54 Dose 0.4 mg SL .STK-MED ONE Potassium Chloride 40 meq 02/20/23 10:56 02/20/23 10:58 Potassium Chloride Tab 10 Meq Tab PO 02/20/23 10:57 40 meq STAT ONE Administration Potassium Chloride Confirm 02/20/23 10:58 Potassium Chloride Tab 10 Meq Tab Administered 02/20/23 10:59 Dose 40 meq PO .STK-MED ONE Lab/Rad Data: Laboratory Result Diagrams 02/20/23 10:03 02/20/23 10:03 Laboratory Results 02/20/23 02/20/23 02/20/23 Range/Units 12:00 10:15 10:03 WBC (4.0-10.5) x10^3/uL RBC (4.1-5.6) x10^6/uL Hgb (12.5-18.0) g/dL Hct (42-50) % MCV (78-100) fL MCH (26-32) pg MCHC (32-36) g/dL RDW (11.5-14.0) % Plt Count (150-450) x10^3/uL MPV (7.5-11.0) fL Gran % (36.0-66.0) % Immature Gran % (Auto) (0.00-0.4) % Nucleat RBC Rel Count (0.00-0.1) % Eos # (Auto) (0-0.5) x10^3/uL Immature Gran # (Auto) (0.00-0.03) x10^3u/L Absolute Lymphs (auto) (1.0-4.6) x10^3/uL Absolute Monos (auto) (0.0-1.3) x10^3/uL Absolute Nucleated RBC (0.00-0.01) x10^3u/L Lymphocytes % (24.0-44.0) % Monocytes % (0.0-12.0) % Eosinophils % (0.00-5.0) % Basophils % (0.0-0.4) % Absolute Granulocytes (1.4-6.9) x10^3/uL Basophils # (0-0.4) x10^3/uL PT (9.4-12.5) SECONDS INR (0.8-3.0) APTT (25.1-36.5) SECONDS D-Dimer 0.21 (0.0-0.50) mg/L Sodium (137-145) mmol/L Potassium (3.5-5.1) mmol/L Chloride (98-107) mmol/L Carbon Dioxide (22-30) mmol/L Anion Gap (5-15) MEQ/L BUN (9-20) mg/dL Creatinine (0.66-1.25) mg/dL Estimated GFR ML/MIN Glucose (74-106) mg/dL Calcium (8.4-10.2) mg/dL Total Bilirubin (0.2-1.3) mg/dL AST (17-59) U/L ALT (0-50) U/L Alkaline Phosphatase (38-126) U/L Troponin I < 0.012 (0.000-0.034) ng/mL NT-Pro-B Natriuret Pep 37.6 (<300) pg/mL Serum Total Protein (6.3-8.2) g/dL Albumin (3.5-5.0) g/dL 02/20/23 02/20/23 02/20/23 Range/Units 10:03 10:03 10:03 WBC (4.0-10.5) x10^3/uL RBC (4.1-5.6) x10^6/uL Hgb (12.5-18.0) g/dL Hct (42-50) % MCV (78-100) fL MCH (26-32) pg MCHC (32-36) g/dL RDW (11.5-14.0) % Plt Count (150-450) x10^3/uL MPV (7.5-11.0) fL Gran % (36.0-66.0) % Immature Gran % (Auto) (0.00-0.4) % Nucleat RBC Rel Count (0.00-0.1) % Eos # (Auto) (0-0.5) x10^3/uL Immature Gran # (Auto) (0.00-0.03) x10^3u/L Absolute Lymphs (auto) (1.0-4.6) x10^3/uL Absolute Monos (auto) (0.0-1.3) x10^3/uL Absolute Nucleated RBC (0.00-0.01) x10^3u/L Lymphocytes % (24.0-44.0) % Monocytes % (0.0-12.0) % Eosinophils % (0.00-5.0) % Basophils % (0.0-0.4) % Absolute Granulocytes (1.4-6.9) x10^3/uL Basophils # (0-0.4) x10^3/uL PT 9.9 (9.4-12.5) SECONDS INR 0.90 (0.8-3.0) APTT 29.4 (25.1-36.5) SECONDS D-Dimer (0.0-0.50) mg/L Sodium 141 (137-145) mmol/L Potassium 3.2 L (3.5-5.1) mmol/L Chloride 105 (98-107) mmol/L Carbon Dioxide 24 (22-30) mmol/L Anion Gap 15.3 H (5-15) MEQ/L BUN 16 (9-20) mg/dL Creatinine 0.92 (0.66-1.25) mg/dL Estimated GFR > 60.0 ML/MIN Glucose 120 H (74-106) mg/dL Calcium 9.2 (8.4-10.2) mg/dL Total Bilirubin 0.70 (0.2-1.3) mg/dL AST 24 (17-59) U/L ALT 34 (0-50) U/L Alkaline Phosphatase 113 (38-126) U/L Troponin I < 0.012 (0.000-0.034) ng/mL NT-Pro-B Natriuret Pep (<300) pg/mL Serum Total Protein 7.8 (6.3-8.2) g/dL Albumin 4.3 (3.5-5.0) g/dL 02/20/23 Range/Units 10:03 WBC 9.1 (4.0-10.5) x10^3/uL RBC 4.70 (4.1-5.6) x10^6/uL Hgb 14.4 (12.5-18.0) g/dL Hct 43.6 (42-50) % MCV 92.8 (78-100) fL MCH 30.6 (26-32) pg MCHC 33.0 (32-36) g/dL RDW 13.7 (11.5-14.0) % Plt Count 336 (150-450) x10^3/uL MPV 9.3 (7.5-11.0) fL Gran % 48.8 (36.0-66.0) % Immature Gran % (Auto) 0.2 (0.00-0.4) % Nucleat RBC Rel Count 0.0 (0.00-0.1) % Eos # (Auto) 0.33 (0-0.5) x10^3/uL Immature Gran # (Auto) 0.02 (0.00-0.03) x10^3u/L Absolute Lymphs (auto) 3.36 (1.0-4.6) x10^3/uL Absolute Monos (auto) 0.88 (0.0-1.3) x10^3/uL Absolute Nucleated RBC 0.00 (0.00-0.01) x10^3u/L Lymphocytes % 37.0 (24.0-44.0) % Monocytes % 9.7 (0.0-12.0) % Eosinophils % 3.6 (0.00-5.0) % Basophils % 0.7 (0.0-0.4) % Absolute Granulocytes 4.43 (1.4-6.9) x10^3/uL Basophils # 0.06 (0-0.4) x10^3/uL PT (9.4-12.5) SECONDS INR (0.8-3.0) APTT (25.1-36.5) SECONDS D-Dimer (0.0-0.50) mg/L Sodium (137-145) mmol/L Potassium (3.5-5.1) mmol/L Chloride (98-107) mmol/L Carbon Dioxide (22-30) mmol/L Anion Gap (5-15) MEQ/L BUN (9-20) mg/dL Creatinine (0.66-1.25) mg/dL Estimated GFR ML/MIN Glucose (74-106) mg/dL Calcium (8.4-10.2) mg/dL Total Bilirubin (0.2-1.3) mg/dL AST (17-59) U/L ALT (0-50) U/L Alkaline Phosphatase (38-126) U/L Troponin I (0.000-0.034) ng/mL NT-Pro-B Natriuret Pep (<300) pg/mL Serum Total Protein (6.3-8.2) g/dL Albumin (3.5-5.0) g/dL - Progress Progress Note: 02/20/23 10:28 Nursing note and vital signs reviewed No food or housing insecurities noted 324mg ASA given 0.4 SL NTG x1 w total relief in pain Troponin neg x2 Pt pain free during entire visit after SL NTG x1 Pt refuses observational admit at this time. Risks including LA/ explained to pt but still refused. Pt w stress test at another facility in the AM. Advised to return to ER for chest pain or dyspnea. Troponin neg x2. 02/20/23 12:56 Counseled pt/family regarding: lab results, diagnosis, need for follow-up, rad results Medical Desision Making - Independent Historian Additional History obtained from: Spouse - External Record(s) Reviewed Records reviewed as a part of evaluation & management: Discharge Summary ([facility] summary 01/11/23 No LA or PE/Neg CTA of chest) - Diagnostic Testing Radiological Interpretation: Reviewed by me - Risk of complications The pt has a high risk of morbidity or mortality based on: Decision regarding hospitilization or escalation of hosp level of care - Departure Departure Disposition: Home Clinical Impression: Chest pain Condition: Stable Critical Care Time: Yes Critical Care Time(excluding separately billable procedures): Critical 30-74 mins Referrals: MAURICIO COATES MD [Primary Care Provider] - Follow up/PCP as directed Instructions: Chest Pain (DC) Additional Instructions: Follow up with your punch machine operator tomorrow Return to ER for increasing pain or shortness of breath
[2023-02-20] MEDS ORDERED: BABY ASPIRIN 81 MG CHEW ONE (09:51)
[2023-02-20] MEDS ORDERED: Nitrostat 0.4 MG (ED) SL ONE ×2 (09:52→09:53)
[2023-02-20 10:05] LABS: Absolute Neutrophil Ct (ANC) 4.43 x10^3/uL (1.4-6.9); BASOPHIL % 0.7 % (0.0-0.4); Basophil (Absolute #) 0.06 x10^3/uL (0-0.4); Eosinophil % 3.6 % (0.00-5.0); Eosinophil (Absolute #) 0.33 x10^3/uL (0-0.5); Hematocrit 43.6 % (42-50); Hemoglobin 14.4 g/dL (12.5-18.0); IMMATURE GRAN # 0.02 x10^3u/L (0.00-0.03); IMMATURE GRAN % 0.2 % (0.00-0.4); Lymphocyte (Absolute #) 3.36 x10^3/uL (1.0-4.6); Mean Cell Volume 92.8 fL (78-100); Mean Corpuscular Hemoglobin 30.6 pg (26-32); Mean Platelet Volume 9.3 fL (7.5-11.0); Monocyte (Absolute #) 0.88 x10^3/uL (0.0-1.3); Monocytes % 9.7 % (0.0-12.0); Neutrophil % 48.8 % (36.0-66.0); Platelet Count 336 x10^3/uL (150-450); Red Cell Distribution Width 13.7 % (11.5-14.0); White Blood Count 9.1 x10^3/uL (4.0-10.5)
--- NOTE | 2023-02-20 10:05 | XRAY ---
Indication: Chest pain. History of CA. Comparison: October 23, 2019 Portable chest inflated and clear. Heart not enlarged. Bony thorax intact. No new/acute findings.
[2023-02-20 10:19] LABS: ALBUMIN 4.3 g/dL (3.5-5.0); ALKALINE PHOSPHATASE 113 U/L (38-126); ANION GAP 15.3 MEQ/L (5-15); BLOOD UREA NITROGEN 16 mg/dL (9-20); CHLORIDE 105 mmol/L (98-107); Calcium 9.2 mg/dL (8.4-10.2); Carbon Dioxide 24 mmol/L (22-30); Creatinine 1 0.92 mg/dL (0.66-1.25); EST GLOMERULAR FILTRATION RATE > 60.0 ML/MIN; Glucose 120 mg/dL (74-106); Potassium 3.2 mmol/L (3.5-5.1); SGOT/AST 24 U/L (17-59); SGPT/ALT 34 U/L (0-50); SODIUM 141 mmol/L (137-145); Total Protein 7.8 g/dL (6.3-8.2)
[2023-02-20 10:20] LABS: INR 0.9 (0.8-3.0); PROTIME 9.9 SECONDS (9.4-12.5); PTT 29.4 SECONDS (25.1-36.5)
[2023-02-20] MEDS ORDERED: Klor Con PO ONE ×2 (10:56→10:58)
[2023-02-20 12:58] VITALS: BP 131/79; PULSE 58
[2023-02-20 12:59] VITALS: O2SAT 100
== END 2023-02-20 13:03 | disposition home or self-care (01) ==
LOC: ED 09:10
DX: R07.9 Chest pain, unspecified (principal); I10 Essential (primary) hypertension; E78.5 Hyperlipidemia, unspecified; Z79.899 Other long term (current) drug therapy; Z28.310 Unvaccinated for COVID-19; Z72.0 Tobacco use
CPT/HCPCS: 36415; 71045; 80053; 83880; 84484; 85025; 85379; 85610; 85730; 99284; A9270-GY

== ENCOUNTER 2023-04-22 08:44 | Emergency (ER) | payer OTHER ==
[2023-04-22 09:14] VITALS: RESP 16; TEMP 97.3
--- NOTE | 2023-04-22 09:21 | ERPHSYRPT ---
- History of Present Illness Time Seen by Provider: 04/22/23 09:19 Source: patient Exam Limitations: no limitations Patient Subjective Stated Complaint: L hand pain since being stung by a bee and landing on L hand at 0645 Triage Nursing Assessment: . Physician History: Patient is a 43-year-old male presents to our ED with pain to his left hand particularly at the second and third digit. Patient states he was stung by bee at this hand. Patient self-administered a dose of epinephrine. Patient states in the scramble patient fell out of his tractor onto his left hand. Injury occurred approximately 6:45 AM. No other injuries reported. No BHT or LOC. No neck pain. Patient does not have any systemic manifestations at this time from the bee sting. Patient complains of localized pain to the second and third dig it. Patient voices no other complaints or concerns at this time. Portions of this note were created with voice recognition technology. There may be grammatical, spelling, punctuation or sound alike errors Timing/Duration: today Severity: moderate Modifying Factors: Improves With: nothing Associated Symptoms: denies symptoms Allergies/Adverse Reactions: bee venom protein (honey bee) Allergy (Severe, Verified 04/22/23 09:13) anyphylaxis mushroom Allergy (Severe, Verified 04/22/23 09:13) anaphylaxis Home Medications: Amlodipine Besylate 5 mg [Norvasc 5 mg] 10 mg PO DAILY 02/20/23 [History] Aspirin EC 81 mg [Ecotrin 81 mg] 81 mg PO DAILY 02/20/23 [History] Atorvastatin Calcium [Lipitor 40Mg] 40 mg PO HS 02/20/23 [History] Losartan/Hydrochlorothiazide [Losartan-Hctz 100-25 mg Tab] 1 each PO DAILY 02/20/23 [History] Hx Tetanus, Diphtheria Vaccination/Date Given: No Hx Influenza Vaccination/Date Given: No Hx Pneumococcal Vaccination/Date Given: No Travel Risk - International Travel Have you traveled outside of the country in past 3 weeks: No - Coronavirus Screening Are you exhibiting any of the following symptoms?: No - Vaccine Status Have you recieved a Covid-19 vaccination: No - Review of Systems Constitutional: No Symptoms, No Fever, No Chills Eyes: No Symptoms Ears, Nose, & Throat: No Symptoms Respiratory: No Symptoms, No Cough, No Dyspnea Cardiac: No Symptoms, No Chest Pain, No Edema, No Syncope Abdominal/Gastrointestinal: No Symptoms, No Abdominal Pain, No Nausea, No Vomiting, No Diarrhea Genitourinary Symptoms: No Symptoms, No Dysuria Musculoskeletal: No Symptoms, No Back Pain, No Neck Pain Skin: No Symptoms, No Rash Neurological: No Symptoms, No Dizziness, No Focal Weakness, No Sensory Changes Psychological: No Symptoms Endocrine: No Symptoms Hematologic/Lymphatic: No Symptoms Immunological/Allergic: No Symptoms All Other Systems: Reviewed and Negative - Past Medical History Pertinent Past Medical History: Yes Neurological History: Stroke Cardiac History: Hypertension Respiratory History: No Pertinent History Endocrine Medical History: No Pertinent History Musculoskeletal History: No Pertinent History GI Medical History: GERD Psycho-Social History: Anxiety - Past Surgical History Past Surgical History: Yes Gastrointestinal: Appendectomy Other Surgical History: appi - Social History Smoking Status: Current every day smoker How long have you smoked: years Exposure to second hand smoke: Yes Drug Use: marijuana Patient Lives Alone: No Significant Family History: no pertinent family hx - Nursing Vital Signs Nursing Vital Signs: Initial Vital Signs Temperature 97.3 F 04/22/23 09:07 Pulse Rate 67 04/22/23 09:07 Respiratory Rate 16 04/22/23 09:07 Blood Pressure 153/94 04/22/23 09:07 O2 Sat by Pulse Oximetry 98 04/22/23 09:07 Pain Scale Pain Intensity 8 - Physical Exam General Appearance: no apparent distress, alert Eye Exam: PERRL/EOMI, eyes nml inspection Ears, Nose, Throat Exam: normal ENT inspection, TMs normal, pharynx normal, moist mucous membranes Neck Exam: normal inspection, non-tender, supple, full range of motion Respiratory Exam: normal breath sounds, lungs clear, airway intact, No respiratory distress Cardiovascular Exam: regular rate/rhythm, normal heart sounds, normal peripheral pulses Gastrointestinal/Abdomen Exam: soft, normal bowel sounds, No tenderness, No mass Back Exam: normal inspection, normal range of motion, No CVA tenderness, No vertebral tenderness Extremity Exam: normal inspection, normal range of motion, pelvis stable, other (Some swelling and tenderness to the dorsal aspect of left hand. Tenderness goes down into the second and third digit. No open or draining lesions. Extremity neurovascular intact distally. Compartments are soft. Cap refill less than 2 seconds. Radial pulse palpable. Extremity is warm pink and ) Neurologic Exam: alert, oriented x 3, cooperative, normal mood/affect, nml cerebellar function, nml station & gait, sensation nml, No motor deficits Skin Exam: normal color, warm, dry, No rash Lymphatic Exam: No adenopathy SpO2 Interpretation: normal SpO2: 98 O2 Delivery: Room Air - Course Nursing assessment & vital signs reviewed: Yes - Radiology Exams Hand X-ray Interpretation: Teleradiologist Report (No bony articular or soft tissue abnormalities) Ordered Tests: Active Orders 24 hr Category Date Time Status HAND (MINIMUM 3 VIEWS) Stat Exams 04/22/23 09:14 Completed Medication Summary Discontinued Medications Generic Name Dose Route Start Last Admin Trade Name Freq PRN Reason Stop Dose Admin Ketorolac Tromethamine 30 mg 04/22/23 09:14 04/22/23 09:25 Ketorolac Tromethamine 30 Mg/Ml Inj IM 04/22/23 09:15 30 mg STAT ONE Administration Ketorolac Tromethamine Confirm 04/22/23 09:23 Ketorolac Tromethamine 30 Mg/Ml Inj Administered 04/22/23 09:24 Dose 30 mg .ROUTE .Reset TherapeuticsMED ONE - Progress Progress: improved Progress Note: Patient is a 43-year-old male presents to our ED for evaluation of pain to his left hand after a bee sting and a fall. Physical exam reveals some swelling to the dorsal aspect of patient's left hand however patient involved extremity is neurovascular intact distally. Compartments are soft. Cap refill less than 2 seconds. Radial pulse palpable. Sensory and motor function within normal limits. No obvious deformity on exam. X-ray reveals no fracture dislocations. Patient received Toradol IM for pain control. A prescription for oral Toradol for the patient's pharmacy. Patient requested a refill on his EpiPen. EpiPen refills forwarded to patient's pharmacy as well. Patient agrees to follow-up with his primary care doctor within 48 hours for reevaluation. Patient states he is ready for discharge. He voices no other complaints or concerns at this time. Portions of this note were created with voice recognition technology. There may be grammatical, spelling, punctuation or sound alike errors Complexity of problems addressed is low acute uncomplicated No critical care time Complex of data reviewed and analyzed is moderate. Test ordered. X-ray reviewed by Dr. Vanessa. I agree with radiologist read. However there is soft tissue swelling of the dorsal aspect the patient's hand observed on x-ray. Risk for complication and or risk of morbidity/mortality of patient management is moderate. A prescription for Toradol and refill on EpiPen was forwarded to patient's pharmacy. We will discharge home. Patient agrees to follow-up with his primary care doctor within 48 hours. Vital stable. Plan of care established for shared decision making. No social determinants of health presents in pain follow-up. Portions of this note were created with voice recognition technology. There may be grammatical, spelling, punctuation or sound alike errors 04/22/23 10:04 Counseled pt/family regarding: diagnosis, need for follow-up, rad results - Departure Departure Disposition: Home Clinical Impression: Fall, Hand pain, left Condition: Stable Critical Care Time: No Referrals: MAURICIO COATES MD [Primary Care Provider] - Follow up/PCP as directed Additional Instructions: Discharge/Care Plan KAYLYN DURAN was seen on 04/22/23 in the Emergency Room. The patient was counseled regarding Diagnosis,Lab results, Imaging studies, need for follow up and when to return to the Emergency Room. Prescriptions given: Discharge Note I have spoken with the patient and/or caregivers. I have explained the patient's condition, diagnosis and treatment plan based on the information available to me at this time. I have answered the patient's and/or caregiver's questions and addressed any concerns. The patient and/or caregivers have as good understanding of the patient's diagnosis, condition and treatment plan as can be expected at this point. The vital signs have been stable. The patient's condition is stable and appropriate for discharge from the emergency department. The patient will pursue further outpatient evaluation with the primary care physician or other designated or consulting physician as outlined in the discharge instructions. The patient and/or caregivers are agreeable to this plan of care and follow-up instructions have been explained in detail. The patient and/or caregivers have received these instruction. The patient/and or caregivers are aware that any significant change in condition or worsening of symptoms should prompt an immediate return to this or the closest emergency department or call 911. Prescriptions: EPINEPHrine [Epipen 2-Jef] 0.3 mg IJ DAILY 1 Days #1 unit Ketorolac Trometh 10 mg Tab [TORAdol 10 MG TABLET] 10 mg PO TID 5 Days #15 tablet
[2023-04-22] MEDS ORDERED: TORAdol 30 mg Injection ONE (09:23)
[2023-04-22] MEDS: TORAdol 30 mg Injection IM ONE (09:25)
--- NOTE | 2023-04-22 09:53 | XRAY ---
Indication: Pain and swelling following fall. Comparison: None 3 view left hand obtained. No bony, articular, or soft tissue abnormalities.
[2023-04-22 10:06] VITALS: BP 130/84; PULSE 74
[2023-04-22 10:11] VITALS: O2SAT 98
== END 2023-04-22 10:08 | disposition home or self-care (01) ==
LOC: ED 08:44
DX: M79.642 Pain in left hand (principal); W17.89XA Other fall from one level to another, initial encounter; I10 Essential (primary) hypertension; Z79.899 Other long term (current) drug therapy; Z28.310 Unvaccinated for COVID-19; Z72.0 Tobacco use
CPT/HCPCS: 73130; 96372; 99283; J1885

== ENCOUNTER 2024-07-25 20:05 | Emergency (ER) | payer OTHER ==
[2024-07-25 20:19] VITALS: RESP 18; TEMP 97.7; O2SAT 96
[2024-07-25] MEDS ORDERED: Vibramycin 100 MG ONE (20:41)
--- NOTE | 2024-07-25 20:42 | ERPHSYRPT ---
- History of Present Illness Time Seen by Provider: 07/25/24 20:30 Source: patient Exam Limitations: no limitations Patient Subjective Stated Complaint: pt states he got bit by a spider on 07/16/24, [facility] and prescribed keflex that pt is still currently taking, pt states it area started draining tonight after patient picked a scab off Triage Nursing Assessment: pt ambulatory to bed by self, pt alert and oriented x3, pt presents with a spider bite to R lower leg which patient is prescribed keflex by [facility], yellow drainage noted to wound, reddened around wound, afebrile Physician History: 44yo m presents to ED via private vehicle for r leg wound. Pt reports he believes he had a spider bite that was swelling last week, was seen at urgent care and given 7d course of keflex, pt reports that today he scratched it and had some purulent drainage w/ significant pain from the leg. Pt denies any fevers at home, does endorse some pain w/ ambulation. Timing/Duration: today Quality: painful Severity: mild Location: extremities Possible Causes: insect bite Allergies/Adverse Reactions: bee venom protein (honey bee) Allergy (Severe, Verified 07/25/24 20:10) anyphylaxis mushroom Allergy (Severe, Verified 07/25/24 20:10) anaphylaxis Home Medications: Amlodipine Besylate 5 mg [Norvasc 5 mg] 10 mg PO DAILY 02/20/23 [History] Aspirin EC 81 mg [Ecotrin 81 mg] 81 mg PO DAILY 02/20/23 [History] Atorvastatin Calcium [Lipitor 40Mg] 40 mg PO HS 02/20/23 [History] Losartan/Hydrochlorothiazide [Losartan-Hctz 100-25 mg Tab] 1 each PO DAILY 02/20/23 [History] cephALEXin [Cephalexin] 500 mg PO UD 07/25/24 [History] Hx Tetanus, Diphtheria Vaccination/Date Given: Yes Hx Influenza Vaccination/Date Given: No Hx Pneumococcal Vaccination/Date Given: No Travel Risk - International Travel Have you traveled outside of the country in past 3 weeks: No - Emerging Infectious Disease Are you exhibiting symptoms associated with any current EIDs: No - Review of Systems Constitutional: No Symptoms Respiratory: No Symptoms Cardiac: No Symptoms Skin: Skin Lesions - Past Medical History Pertinent Past Medical History: Yes Neurological History: TIA ENT History: No Pertinent History Cardiac History: High Cholesterol, Hypertension Respiratory History: No Pertinent History Endocrine Medical History: No Pertinent History Musculoskeletal History: No Pertinent History GI Medical History: GERD History: No Pertinent History Psycho-Social History: Anxiety Male Reproductive Disorders: No Pertinent History - Past Surgical History Past Surgical History: Yes Neuro Surgical History: No Pertinent History Cardiac: Cardiac Catheterization Respiratory: No Pertinent History Gastrointestinal: Appendectomy Genitourinary: No Pertinent History Musculoskeletal: No Pertinent History Male Surgical History: No Pertinent History Other Surgical History: appi Significant Family History: no pertinent family hx - Social History Smoking Status: Current every day smoker How long have you smoked: years Exposure to second hand smoke: Yes Drug Use: marijuana Patient Lives Alone: No - Social Determinants of Health Will the patient participate in the screening: Declined to provide - Nursing Vital Signs Nursing Vital Signs: Initial Vital Signs Temperature 97.7 F 07/25/24 20:11 Pulse Rate 72 07/25/24 20:11 Respiratory Rate 18 07/25/24 20:11 Blood Pressure 158/102 07/25/24 20:11 O2 Sat by Pulse Oximetry 96 07/25/24 20:11 Pain Scale Pain Intensity 10 - Physical Exam General Appearance: no apparent distress, alert Respiratory Exam: normal breath sounds, airway intact, No respiratory distress Cardiovascular Exam: regular rate/rhythm, normal heart sounds Skin Exam: other (right anterior LE mid agee - 1 cm diameter area of purulence w/ serosanguinous drainage, erethyema surrounding wound, no streaking promixally, neurovascularly intact in RLE and right foot) SpO2 Interpretation: normal SpO2: 96 O2 Delivery: Room Air Ordered Tests: Active Orders 24 hr Category Date Time Status Wound Care STAT Care 07/25/24 20:33 Active LOWER LEG Stat Exams 07/25/24 20:35 Taken CULTURE,WOUND Stat Lab 07/25/24 21:10 Ordered Medication Summary Discontinued Medications Generic Name Dose Route Start Last Admin Trade Name Freq PRN Reason Stop Dose Admin Bacitracin Zinc Confirm 07/25/24 20:49 Bacitracin Packet 1 Each Pckt Administered 07/25/24 20:50 Dose 1 each .ROUTE .STK-MED ONE Doxycycline Hyclate 100 mg 07/25/24 20:34 07/25/24 20:43 Doxycycline Hyclate 100 Mg Tablet PO 07/25/24 20:35 100 mg STAT ONE Administration Doxycycline Hyclate Confirm 07/25/24 20:41 Doxycycline Hyclate 100 Mg Tablet Administered 07/25/24 20:42 Dose 100 mg .ROUTE .STK-MED ONE - Progress Progress: improved Medical Desision Making - Diagnostic Testing Diagnostic test were ordered, analyzed, and reviewed by me: Yes Radiological Interpretation: Interpreted by me, Reviewed by me - Risk of complications Minimal Risk: Minimal risk of morbidity - Departure Clinical Impression: Cellulitis and abscess of right lower extremity Condition: Stable Critical Care Time: No Referrals: MAURICIO COATES MD [Primary Care Provider] - Follow up/PCP as directed Additional Instructions: complete 7d course of doxycycline continue to use antibiotic ointment and wrap w/ gauze/coband at home return to ED if: develop fevers, become unable to bear weight, pain becomes unbearable Prescriptions: Doxycycline Hyclate 100 mg [Vibramycin 100 MG] 100 mg PO BID 7 Days #13 tab
[2024-07-25] MEDS: Vibramycin 100 MG PO ONE (20:43)
[2024-07-25] MEDS ORDERED: BACIGUENT PACKET ONE (20:49)
[2024-07-25 21:15] VITALS: BP 146/97; PULSE 78
[2024-07-25] MEDS ORDERED: MOTRIN 600 MG ONE (21:19)
[2024-07-25] MEDS: MOTRIN 600 MG PO ONE (21:19)
--- NOTE | 2024-07-26 08:41 | XRAY ---
Indication: Wound on chin. Spider bite. Comparison: None 2 view right lower leg obtained. No bony, articular, or soft tissue abnormalities.
== END 2024-07-25 21:28 | disposition home or self-care (01) ==
LOC: ED 20:05
DX: L02.415 Cutaneous abscess of right lower limb (principal); L03.115 Cellulitis of right lower limb; M79.661 Pain in right lower leg; E78.5 Hyperlipidemia, unspecified; I10 Essential (primary) hypertension; Z79.899 Other long term (current) drug therapy; Z72.0 Tobacco use
CPT/HCPCS: 73590; 87070; 87077; 87186; 99283; A9270-GY

== ENCOUNTER 2024-12-08 11:43 | Emergency (ER) | payer OTHER ==
[2024-12-08] MEDS ORDERED: Racepinephrine INH Solution 2.25% IH ONE (11:44)
[2024-12-08] MEDS ORDERED: solu-MEDROL 125 MG, Sterile H2O 10 ml 2 ML IV ONE (11:45)
[2024-12-08] MEDS ORDERED: Sterile H2O 10 ml IJ ONE (11:45)
[2024-12-08] MEDS ORDERED: Pepcid 20 MG VIAL IV ONE ×2 (11:45)
[2024-12-08] MEDS ORDERED: BENADRYL 50 MG/ML ONE (11:45)
[2024-12-08] MEDS ORDERED: BENADRYL 50 MG/ML IV ONE (11:45)
[2024-12-08] MEDS ORDERED: solu-MEDROL ONE (11:45)
[2024-12-08 11:54] VITALS: TEMP 98.2
[2024-12-08] MEDS: Racepinephrine INH Solution 2.25% IH ONE (11:56)
[2024-12-08] MEDS: Sodium Chloride 3 ML UD NEBULES IH ONE (11:56)
[2024-12-08] MEDS: BENADRYL 50 MG/ML IV ONE (11:57)
[2024-12-08] MEDS: solu-MEDROL 125 MG, Sterile H2O 10 ml 2 ML IV ONE (11:58)
[2024-12-08] MEDS: Pepcid 20 MG VIAL IV ONE (11:58)
--- NOTE | 2024-12-08 12:43 | ERPHSYRPT ---
- History of Present Illness Time Seen by Provider: 12/08/24 11:50 Source: patient Exam Limitations: no limitations Patient Subjective Stated Complaint: Pt states "I am allergic to mushrooms and I was near a can of them and it splashed into my face and mouth. I used my epi pen and raced here." Triage Nursing Assessment: Pt presented alert and anxious, sweating, red faced, tachypneic. Pt has hoarse voice. Physician History: 44-year-old male with history of hypertension/hyperlipidemia/mushroom allergies was at work when someone opened a can of mushroom which splashed on his face. Patient immediately started to feel some scratchiness in the throat, some difficulty breathing and used EpiPen immediately and presented in the ER with still having some discomfort in the throat. Patient reports minimal wheezing. Denies feeling dizzy or lightheaded. No swelling of tongue/floor of mouth. Throat closing sensation is remarkably improved after using EpiPen. Allergies/Adverse Reactions: bee venom protein (honey bee) Allergy (Severe, Verified 07/25/24 20:10) anyphylaxis mushroom Allergy (Severe, Verified 07/25/24 20:10) anaphylaxis Home Medications: Amlodipine Besylate 5 mg [Norvasc 5 mg] 10 mg PO DAILY 02/20/23 [History] Aspirin EC 81 mg [Ecotrin 81 mg] 81 mg PO DAILY 02/20/23 [History] Atorvastatin Calcium [Lipitor 40Mg] 40 mg PO HS 02/20/23 [History] Losartan/Hydrochlorothiazide [Losartan-Hctz 100-25 mg Tab] 1 each PO DAILY 02/20/23 [History] Hx Tetanus, Diphtheria Vaccination/Date Given: Yes Hx Influenza Vaccination/Date Given: No Hx Pneumococcal Vaccination/Date Given: No Immunizations Up to Date: No Travel Risk - International Travel Have you traveled outside of the country in past 3 weeks: No - Emerging Infectious Disease Are you exhibiting symptoms associated with any current EIDs: No - Review of Systems Constitutional: No Symptoms Eyes: No Symptoms Ears, Nose, & Throat: Throat Swelling Respiratory: Dyspnea, Wheezing Cardiac: No Symptoms Abdominal/Gastrointestinal: No Symptoms Musculoskeletal: No Symptoms Skin: No Symptoms Neurological: No Symptoms Hematologic/Lymphatic: No Symptoms Immunological/Allergic: Food Allergy All Other Systems: Reviewed and Negative - Past Medical History Pertinent Past Medical History: Yes Neurological History: TIA ENT History: No Pertinent History Cardiac History: High Cholesterol, Hypertension Respiratory History: No Pertinent History Endocrine Medical History: No Pertinent History Musculoskeletal History: No Pertinent History GI Medical History: GERD History: No Pertinent History Psycho-Social History: Anxiety Male Reproductive Disorders: No Pertinent History - Past Surgical History Past Surgical History: Yes Neuro Surgical History: No Pertinent History Cardiac: Cardiac Catheterization Respiratory: No Pertinent History Gastrointestinal: Appendectomy Genitourinary: No Pertinent History Musculoskeletal: No Pertinent History Male Surgical History: No Pertinent History Other Surgical History: appi Significant Family History: no pertinent family hx - Social History Smoking Status: Current every day smoker How long have you smoked: years Exposure to second hand smoke: Yes Drug Use: marijuana - Social Determinants of Health Will the patient participate in the screening: Declined to provide - Nursing Vital Signs Nursing Vital Signs: Initial Vital Signs Pulse Rate 104 H 12/08/24 11:45 Respiratory Rate 17 12/08/24 11:45 O2 Sat by Pulse Oximetry 100 12/08/24 11:45 Pain Scale Pain Intensity 0 - Physical Exam General Appearance: no apparent distress, alert, anxiety Eye Exam: PERRL/EOMI Ears, Nose, Throat Exam: moist mucous membranes, pharyngeal erythema Neck Exam: normal inspection, non-tender, supple, full range of motion Respiratory Exam: normal breath sounds, lungs clear Cardiovascular Exam: regular rate/rhythm, normal heart sounds Gastrointestinal/Abdomen Exam: soft, No tenderness Extremity Exam: normal inspection, normal range of motion Neurologic Exam: alert, oriented x 3, cooperative Skin Exam: normal color SpO2 Interpretation: normal SpO2: 99 O2 Delivery: Room Air Ordered Tests: Medication Summary Discontinued Medications Generic Name Dose Route Start Last Admin Trade Name Helene PRN Reason Stop Dose Admin Methylprednisolone Sodium 0 mg 12/08/24 11:56 12/08/24 11:58 Succinate 125 mg/ Sterile IV 12/08/24 11:57 125 mg Water 2 ml STAT ONE Administration Diphenhydramine HCl Confirm 12/08/24 11:45 Diphenhydramine Hcl 50 Mg/Ml Vial Administered 12/08/24 11:46 Dose 50 mg .ROUTE .STK-MED ONE Diphenhydramine HCl 50 mg 12/08/24 11:56 12/08/24 11:57 Diphenhydramine Hcl 50 Mg/Ml Vial IV 12/08/24 11:57 50 mg STAT ONE Administration Epinephrine 0.5 ml 12/08/24 11:45 12/08/24 11:56 Racepinephrine Inh Cierra 0.5 Ml Neb IH 12/08/24 11:46 0.5 ml STAT ONE Administration Epinephrine Confirm 12/08/24 11:44 Racepinephrine Inh Cierra 0.5 Ml Neb Administered 12/08/24 11:45 Dose 0.5 ml IH .STK-MED ONE Famotidine Confirm 12/08/24 11:45 Famotidine 20 Mg/1 Vial Administered 12/08/24 11:46 Dose 40 mg IV .STK-MED ONE Famotidine 40 mg 12/08/24 11:56 12/08/24 11:58 Famotidine 20 Mg/1 Vial IV 12/08/24 11:57 40 mg STAT ONE Administration Methylprednisolone Sodium Succinate Confirm 12/08/24 11:45 Methylprednis Sod Succ 125 Mg/2 Ml Vial Administered 12/08/24 11:46 Dose 125 mg .ROUTE .STK-MED ONE Sodium Chloride 3 ml 12/08/24 11:45 12/08/24 11:56 Sodium Cl For Inhalation 3 Ml Ud Nebule IH 12/08/24 11:46 3 ml STAT ONE Administration Sterile Water Confirm 12/08/24 11:45 Water For Injection,Sterile 10 Ml Vial Administered 12/08/24 11:46 Dose 10 ml IJ .STK-MED ONE - Progress Progress: improved Progress Note: 12/08/24 14:14 44-year-old is evaluated in the ER for exposure to mushrooms at work which patient is allergic to. Immediate swelling of the throat and difficulty breathing. Patient received EpiPen prior to arrival with some improvement. Patient has no stridors on presentation, no wheezing. Does have diffuse erythema in the oropharynx. He is given racemic epi, Solu-Medrol/Benadryl/Pepcid, observed in the ER for almost 2 hours with improvement of symptoms and no return of swelling. Patient is given another prescription of EpiPen and recommended to use above medications. Discussed signs symptoms of worsening needing return to ER which she seems understanding. Complexity of problem addressed: High acuity Complexity of data reviewed/analyzed: Minimal Risk of morbidity/mortality/complication with current condition: High risk Counseled pt/family regarding: diagnosis, need for follow-up Medical Desision Making - Diagnostic Testing Diagnostic test were ordered, analyzed, and reviewed by me: No - Risk of complications The pt has a mod risk of morbidity or mortality based on: Need for prescription drug management - Departure Departure Disposition: Home Clinical Impression: Allergic reaction Condition: Stable Critical Care Time: Yes Critical Care Time(excluding separately billable procedures): Critical 30-74 mins Referrals: MAURICIO COATES MD [Primary Care Provider] - Follow up with PCP 1 day Instructions: Anaphylaxis, Allergic reaction - ED discharge instructions Additional Instructions: Use EpiPen as needed. Follow-up with primary care for reevaluation. Return to ER for for worsening of symptoms like difficulty breathing, swallowing, throat closing sensations, feeling dizzy lightheaded etc. Prescriptions: Diphenhydramine HCl 25 mg [Benadryl 25 mg Capsule] 25 mg PO Q4H PRN PRN #20 cap PRN Reason: Allergies Albuterol Sulfate [Albuterol Sulfate Hfa] 8.5 gm IH Q6H PRN 7 Days #1 inh PRN Reason: Cough Prednisone 20 mg [Deltasone 20 mg] 60 mg PO DAILY 5 Days #15 tablet EPINEPHrine [Epipen 2-Jef] 0.3 mg IJ DAILY 1 Days #1 unit Famotidine 20 mg [Pepcid 20 MG] 20 mg PO BID #14 tablet
[2024-12-08 13:42] VITALS: BP 122/67; PULSE 70; RESP 19
[2024-12-08 14:14] VITALS: O2SAT 99
== END 2024-12-08 14:26 | disposition home or self-care (01) ==
LOC: ED 11:43
DX: T78.1XXA Other adverse food reactions, not elsewhere classified, initial encounter (principal); R06.00 Dyspnea, unspecified; R07.0 Pain in throat; E78.5 Hyperlipidemia, unspecified; I10 Essential (primary) hypertension; Z79.52 Long term (current) use of systemic steroids; Z79.899 Other long term (current) drug therapy; Z72.0 Tobacco use
CPT/HCPCS: 94640; 96374; 96375; 99283; 99284; J1200; J2919

== ENCOUNTER 2025-01-31 20:00 | Emergency (ER) | payer OTHER ==
--- NOTE | 2025-01-31 20:06 | ERPHSYRPT ---
- History of Present Illness Source: patient Exam Limitations: no limitations Physician History: Patient had allergic reaction. He was cooking mushrooms and he is allergic to mushrooms.His breathing becomes more difficult. He usually does not have a rash. He does not have a rash at this time. He is not having any angioedema or throat tightening. He says that is mainly just some breathing issues. His vital signs are stable at this time and he is not in any respiratory distress. He gave himself an EpiPen pen shot about half an hour prior to arrival and then he came here. I do not believe that he is taking any antihistamines or anything like that. Timing/Duration: today Allergies/Adverse Reactions: bee venom protein (honey bee) Allergy (Severe, Verified 07/25/24 20:10) anyphylaxis mushroom Allergy (Severe, Verified 07/25/24 20:10) anaphylaxis Home Medications: Amlodipine Besylate 5 mg [Norvasc 5 mg] 10 mg PO DAILY 02/20/23 [History] Aspirin EC 81 mg [Ecotrin 81 mg] 81 mg PO DAILY 02/20/23 [History] Atorvastatin Calcium [Lipitor 40Mg] 40 mg PO HS 02/20/23 [History] Losartan/Hydrochlorothiazide [Losartan-Hctz 100-25 mg Tab] 1 each PO DAILY 02/20/23 [History] Hx Tetanus, Diphtheria Vaccination/Date Given: Yes Hx Influenza Vaccination/Date Given: No Hx Pneumococcal Vaccination/Date Given: No Travel Risk - Emerging Infectious Disease Are you exhibiting symptoms associated with any current EIDs: No - Past Medical History Pertinent Past Medical History: Yes Neurological History: TIA ENT History: No Pertinent History Cardiac History: High Cholesterol, Hypertension Respiratory History: No Pertinent History Endocrine Medical History: No Pertinent History Musculoskeletal History: No Pertinent History GI Medical History: GERD History: No Pertinent History Psycho-Social History: Anxiety Male Reproductive Disorders: No Pertinent History - Past Surgical History Past Surgical History: Yes Neuro Surgical History: No Pertinent History Cardiac: Cardiac Catheterization Respiratory: No Pertinent History Gastrointestinal: Appendectomy Genitourinary: No Pertinent History Musculoskeletal: No Pertinent History Male Surgical History: No Pertinent History Other Surgical History: appi Significant Family History: no pertinent family hx - Social History Smoking Status: Current every day smoker How long have you smoked: years Exposure to second hand smoke: Yes Drug Use: marijuana - Social Determinants of Health Will the patient participate in the screening: Declined to provide - Nursing Vital Signs Nursing Vital Signs: Initial Vital Signs Temperature 98.7 F 01/31/25 20:01 Pulse Rate 84 01/31/25 20:01 Respiratory Rate 16 01/31/25 20:01 Blood Pressure 136/83 01/31/25 20:01 O2 Sat by Pulse Oximetry 99 01/31/25 20:01 Pain Scale Pain Intensity 0 - Physical Exam General Appearance: no apparent distress Eye Exam: PERRL/EOMI Ears, Nose, Throat Exam: normal ENT inspection Respiratory Exam: normal breath sounds Cardiovascular Exam: regular rate/rhythm Neurologic Exam: alert, oriented x 3 Skin Exam: normal color, warm, dry - Course Nursing assessment & vital signs reviewed: Yes Ordered Tests: Active Orders 24 hr Category Date Time Status Respiratory Therapy Assessment DAILY RT 01/31/25 20:49 Active Medication Summary Discontinued Medications Generic Name Dose Route Start Last Admin Trade Name Freq PRN Reason Stop Dose Admin Methylprednisolone Sodium 0 mg 01/31/25 20:06 01/31/25 20:15 Succinate 125 mg/ Sterile IV 01/31/25 20:07 125 mg Water 2 ml STAT ONE Administration Diphenhydramine HCl 50 mg 01/31/25 20:06 01/31/25 20:11 Diphenhydramine Hcl 50 Mg/Ml Vial IV 01/31/25 20:07 50 mg STAT ONE Administration Diphenhydramine HCl Confirm 01/31/25 20:10 Diphenhydramine Hcl 50 Mg/Ml Vial Administered 01/31/25 20:11 Dose 50 mg .ROUTE .STK-MED ONE Epinephrine Confirm 01/31/25 20:09 Racepinephrine Inh Cierra 0.5 Ml Neb Administered 01/31/25 20:10 Dose 0.5 ml IH .STK-MED ONE Epinephrine 0.5 ml 01/31/25 20:49 01/31/25 20:51 Racepinephrine Inh Cierra 0.5 Ml Neb IH 01/31/25 20:50 0.5 ml STAT ONE Administration Famotidine 20 mg 01/31/25 20:06 01/31/25 20:14 Famotidine 20 Mg/1 Vial IV 01/31/25 20:07 20 mg STAT ONE Administration Famotidine Confirm 01/31/25 20:10 Famotidine 20 Mg/1 Vial Administered 01/31/25 20:11 Dose 20 mg IV .STK-MED ONE Methylprednisolone Sodium Succinate Confirm 01/31/25 20:10 Methylprednis Sod Succ 125 Mg/2 Ml Vial Administered 01/31/25 20:11 Dose 125 mg .ROUTE .STK-MED ONE Sodium Chloride Confirm 01/31/25 20:09 Sodium Cl For Inhalation 3 Ml Ud Nebule Administered 01/31/25 20:10 Dose 3 ml IH .STK-MED ONE Sodium Chloride Confirm 01/31/25 20:11 Sodium Cl For Inhalation 3 Ml Ud Nebule Administered 01/31/25 20:12 Dose 3 ml IH .STK-MED ONE Sterile Water Confirm 01/31/25 20:10 Water For Injection,Sterile 10 Ml Vial Administered 01/31/25 20:11 Dose 10 ml IJ .STK-MED ONE - Progress Progress: improved Progress Note: Patient was stable throughout stay. He got a racemic epi treatment as well as some Solu-Medrol IV. He was also given Benadryl and famotidine. He resolved completely within a few minutes. We watched him for about another hour and a half. I think the patient stable for discharge at this time. I am going to send him home with some prednisone. He is to continue with the Benadryl and he has 1 EpiPen left so I am going to give him a refill on that and he is to use that if needed 01/31/25 22:26 - Departure Departure Disposition: Home Clinical Impression: Allergic reaction Condition: Stable Critical Care Time: No Referrals: MAURICIO COATES MD [Primary Care Provider, [facility]] - Follow up/PCP as directed Instructions: Allergic reaction - ED discharge instructions
[2025-01-31] MEDS ORDERED: Racepinephrine INH Solution 2.25% IH ONE (20:09)
[2025-01-31] MEDS ORDERED: Sodium Chloride 3 ML UD NEBULES IH ONE ×2 (20:09→20:11)
[2025-01-31 20:10] VITALS: TEMP 98.7
[2025-01-31] MEDS ORDERED: Pepcid 20 MG VIAL IV ONE (20:10)
[2025-01-31] MEDS ORDERED: Sterile H2O 10 ml IJ ONE (20:10)
[2025-01-31] MEDS ORDERED: solu-MEDROL ONE (20:10)
[2025-01-31] MEDS ORDERED: BENADRYL 50 MG/ML ONE (20:10)
[2025-01-31] MEDS: BENADRYL 50 MG/ML IV ONE (20:11)
[2025-01-31] MEDS: Pepcid 20 MG VIAL IV ONE (20:14)
[2025-01-31] MEDS: solu-MEDROL 125 MG, Sterile H2O 10 ml 2 ML IV ONE (20:15)
[2025-01-31] MEDS: Racepinephrine INH Solution 2.25% IH ONE (20:51)
[2025-01-31 20:54] VITALS: PULSE 77; RESP 24
[2025-01-31 22:20] VITALS: BP 115/60; O2SAT 96
== END 2025-01-31 22:42 | disposition home or self-care (01) ==
LOC: ED 20:00
DX: T78.1XXA Other adverse food reactions, not elsewhere classified, initial encounter (principal); R06.00 Dyspnea, unspecified; I10 Essential (primary) hypertension; Z79.52 Long term (current) use of systemic steroids; Z79.899 Other long term (current) drug therapy; Z72.0 Tobacco use
CPT/HCPCS: 94640; 96374; 96375; 99283; 99284; J1200; J2919

== ENCOUNTER 2025-06-30 12:01 | Emergency (ER) | payer OTHER ==
--- NOTE | 2025-06-30 12:10 | ERPHSYRPT ---
- History of Present Illness Time Seen by Provider: 06/30/25 12:09 Source: patient Exam Limitations: no limitations Physician History: This is an overweight 45-year-old white male patient arrives by private vehicle and is a patient Dr. Coates with the concern of possible allergic reaction. 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 When he pulled his finger out there was a mushroom stuck to his finger. 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 The patient immediately gave himself an EpiPen injection. Patient stated that he has not felt bad at all he has had no difficulty breathing. Per his 's request, the patient came to the emergency department for evaluation. His room air oxygenation saturation level is 98 to 99%. He is in no distress. He is not wheezing. He is out of his EpiPen prescription. Patient has a history of hypertension, hyperlipidemia, TIA, anxiety and gastroesophageal reflux disease. Timing/Duration: today Quality: other (Asymptomatic) Location: none (Right index finger was the location of the piece of muscle) Possible Causes: other (Piece of mushroom on his right finger while cooking) Associated Symptoms: denies symptoms Allergies/Adverse Reactions: bee venom protein (honey bee) Allergy (Severe, Verified 05/19/25 06:54) anyphylaxis mushroom Allergy (Severe, Verified 05/19/25 06:54) anaphylaxis Home Medications: Aspirin EC 81 mg [Ecotrin 81 mg] 81 mg PO DAILY 02/20/23 [History] Atorvastatin Calcium [Lipitor 40Mg] 40 mg PO HS 02/20/23 [History] Ezetimibe 10 mg [Zetia 10 MG] 10 mg PO DAILY 02/12/25 [History] Metoprolol Succinate 100 mg [Toprol Xl 100 MG] 100 mg PO DAILY 02/12/25 [History] risperiDONE [Risperdal] 0.5 mg PO BID 02/12/25 [History] Cetirizine HCl [All Day Allergy Relief] 10 mg PO 06/30/25 [History] Famotidine 40 mg PO DAILY 06/30/25 [History] Montelukast Sodium 10 mg [Singulair 10 MG] 10 mg PO DAILY 06/30/25 [History] Hx Tetanus, Diphtheria Vaccination/Date Given: Yes Hx Influenza Vaccination/Date Given: No Hx Pneumococcal Vaccination/Date Given: No Travel Risk - International Travel Have you traveled outside of the country in past 3 weeks: No - Emerging Infectious Disease Are you exhibiting symptoms associated with any current EIDs: Yes Symptoms: Abdominal Pain - Review of Systems Constitutional: No Symptoms Eyes: No Symptoms Ears, Nose, & Throat: No Symptoms Respiratory: No Symptoms Cardiac: No Symptoms Abdominal/Gastrointestinal: No Symptoms Genitourinary Symptoms: No Symptoms Musculoskeletal: No Symptoms Skin: No Symptoms Neurological: No Symptoms Psychological: No Symptoms Endocrine: No Symptoms Hematologic/Lymphatic: No Symptoms Immunological/Allergic: No Symptoms All Other Systems: Reviewed and Negative - Past Medical History Pertinent Past Medical History: Yes Neurological History: TIA ENT History: No Pertinent History Cardiac History: High Cholesterol, Hypertension Respiratory History: No Pertinent History Endocrine Medical History: No Pertinent History Musculoskeletal History: No Pertinent History GI Medical History: GERD History: No Pertinent History Psycho-Social History: Anxiety Male Reproductive Disorders: No Pertinent History - Past Surgical History Past Surgical History: Yes Neuro Surgical History: No Pertinent History Cardiac: Cardiac Catheterization Respiratory: No Pertinent History Gastrointestinal: Appendectomy Genitourinary: No Pertinent History Musculoskeletal: No Pertinent History Male Surgical History: No Pertinent History Other Surgical History: appi Significant Family History: no pertinent family hx - Social History Smoking Status: Current every day smoker How long have you smoked: years Exposure to second hand smoke: Yes Drug Use: marijuana - Social Determinants of Health Will the patient participate in the screening: Declined to provide - Nursing Vital Signs Nursing Vital Signs: Initial Vital Signs Temperature 97.9 F 06/30/25 12:05 Pulse Rate 82 06/30/25 12:05 Respiratory Rate 12 06/30/25 12:05 Blood Pressure 155/99 06/30/25 12:05 O2 Sat by Pulse Oximetry 98 06/30/25 12:05 Pain Scale Pain Intensity 0 - Physical Exam General Appearance: no apparent distress, alert, anxiety, obese Eye Exam: PERRL/EOMI, eyes nml inspection Ears, Nose, Throat Exam: normal ENT inspection, moist mucous membranes Neck Exam: normal inspection, non-tender, supple, full range of motion Respiratory Exam: normal breath sounds, lungs clear, airway intact, No chest tenderness, No respiratory distress Cardiovascular Exam: regular rate/rhythm, normal heart sounds, normal peripheral pulses Gastrointestinal/Abdomen Exam: No tenderness Rectal Exam: not done Back Exam: normal inspection, normal range of motion, No CVA tenderness, No vertebral tenderness Extremity Exam: normal inspection, normal range of motion, pelvis stable Neurologic Exam: alert, oriented x 3, cooperative, director of environmental services II-XII nml as tested, nml cerebellar function, nml station & gait, sensation nml Skin Exam: normal color, warm, dry Lymphatic Exam: No adenopathy SpO2 Interpretation: normal O2 Delivery: Room Air - Course Nursing assessment & vital signs reviewed: Yes - Progress Progress: unchanged, re-examined Progress Note: 06/30/25 12:31 My medical decision making and the assignment of low complexity of this patient's medical issue today is based on review of the patient's past medical history, reviewed patient's medication list, reviewed patient drug allergy list, history present illness and physical findings on examination. The workup of this patient does not necessitate laboratory radiographic studies. I discussed with the patient what he would like to have done. I did not feel it necessary to provide the patient with any medication during this visit today. He is completely asymptomatic. Together, we decided to refill his EpiPen prescription, have him take Benadryl at home if there are signs and symptoms of allergic reaction of any level, remotely send prescriptions of Pepcid and steroid to the patient's pharmacy with 1 refill and to begin taking the medications as prescribed if there are any signs and symptoms of allergic reaction with any level. Differential diagnosis includes allergic reaction, anxiety about health, exposure to known allergen Counseled pt/family regarding: diagnosis, need for follow-up Medical Desision Making - Risk of complications Low Risk: Low risk of morbidity from additional dx testing or treatment The pt has a mod risk of morbidity or mortality based on: Need for prescription drug management - Departure Departure Disposition: Home Clinical Impression: Encounter for medical screening examination Condition: Stable Critical Care Time: No Referrals: MAURICIO COATES MD [Primary Care Provider, [facility]] - Follow up/PCP as directed Additional Instructions: At any sign of allergic reaction, begin Benadryl 25 mg orally every 8 hours for 5 days. Fill your prescription of Pepcid and prednisone and have with you and take if any sign of allergic reaction. Call your primary care provider today, 06/30/2025, to make arrangements for follow-up appointment to be seen in the next 3 to 5 days. If you have moderate to severe signs of allergic reaction take the above medication regimen plus use your EpiPen as prescribed. You may also be seen in our emergency department if you have any sign of allergic reaction. Prescriptions: Prednisone 10 mg [Deltasone 10 mg] 10 mg PO TID #12 tablet EPINEPHrine [Epipen 2-Jef] 0.3 mg IJ UD #1 pkt Famotidine 20 mg [Pepcid 20 MG] 20 mg PO DAILY #10 tablet
[2025-06-30 12:20] VITALS: BP 155/99; PULSE 82; TEMP 97.9
[2025-06-30 12:24] VITALS: O2SAT 99
[2025-06-30 12:27] VITALS: RESP 15
== END 2025-06-30 12:56 | disposition home or self-care (01) ==
LOC: ED 12:01
DX: Z03.89 Encounter for observation for other suspected diseases and conditions ruled out (principal); Z79.899 Other long term (current) drug therapy; Z72.0 Tobacco use